=== PATIENT | male | born 1940 | race Caucasian/White ===

== ENCOUNTER 2020-03-22 15:15 | Inpatient (IN) | payer MEDICARE, BC ==
--- NOTE | 2020-03-22 16:02 | ED ---
General Adult HPI - General Chief complaint: Recheck/Abnormal Lab/Rx Stated complaint: kidney failure Time Seen by Provider: 03/22/20 15:24 Source: patient, old records reviewed (Review of reports from [facility], limited report provided) Mode of arrival: EMS Limitations: physical limitation - History of Present Illness Initial comments: Patient is a pleasant 80-year-old male presenting to the emergency Department with complaints of generalized weakness and fatigue. Patient did have a fall this morning. Patient is a poor historian. Did review reports from [facility] that are somewhat limited. Patient reportedly had hemoglobin of 7.5 and was given 1 unit of blood. Patient states he has chronic dark stools secondary to iron intake. Patient is on blood thinners secondary to history of cardiac arrhythmia. Xarelto. Patient states when he fell today he was too weak to get up on his own and needed several people to help him. Patient states he is having some difficulty with urination over the past few days. Patient has previously needed a catheter for this. No confusion or isolated area of weakness. - Related Data Allergies Allergy/AdvReac Type Severity Reaction Status Date / Time metronidazole [From Flagyl] Allergy Unknown Verified 03/22/20 15:31 Review of Systems ROS Statement: Those systems with pertinent positive or pertinent negative responses have been documented in the HPI. ROS Other: All systems not noted in ROS Statement are negative. Constitutional: Denies: fever Eyes: Denies: eye pain ENT: Denies: ear pain Respiratory: Denies: cough, dyspnea Cardiovascular: Denies: chest pain Endocrine: Reports: fatigue Gastrointestinal: Denies: abdominal pain Genitourinary: Denies: dysuria Musculoskeletal: Denies: back pain Skin: Denies: rash Neurological: Reports: as per HPI, weakness. Denies: confusion Past Medical History Past Medical History: GERD/Reflux, Hyperlipidemia, Hypertension History of Any Multi-Drug Resistant Organisms: C-DIFF Date of last positivie culture/infection: 2012 Past Surgical History: Coronary Bypass/CABG, Heart Catheterization With Stent, Orthopedic Surgery Additional Past Surgical History / Comment(s): pacer Past Psychological History: No Psychological Hx Reported Smoking Status: Never smoker Past Alcohol Use History: Occasional Past Drug Use History: None Reported General Exam Limitations: physical limitation General appearance: alert, in no apparent distress Head exam: Present: atraumatic, normocephalic Eye exam: Present: normal appearance, PERRL, EOMI. Absent: nystagmus ENT exam: Present: mucous membranes dry, other (Mild dry blood inside of the) Neck exam: Present: normal inspection. Absent: tenderness Respiratory exam: Present: normal lung sounds bilaterally Cardiovascular Exam: Present: regular rate, normal rhythm GI/Abdominal exam: Present: soft. Absent: tenderness Extremities exam: Present: normal inspection, full ROM Neurological exam: Present: alert, CN II-XII intact. Absent: motor sensory deficit Expanded Neurological exam: Present: protecting the airway Speech: Present: fluid speech Motor strength exam: RUE: 5, LUE: 5, RLE: 5, LLE: 5 Eye Response: (4) open spontaneously Motor Response: (6) obeys commands Verbal Response: (5) oriented Psychiatric exam: Present: normal affect, normal mood Skin exam: Present: normal color Course Vital Signs 03/22/20 15:28 Temperature 97.1 F L Pulse Rate 60 Respiratory 18 Rate Blood Pressure 112/74 O2 Sat by Pulse 95 Oximetry EKG Findings - EKG Comments: EKG Findings:: Paced rhythm with 3-60. QRS 196. QT 514. QTC 514. Superior axis. Wide-complex QRS. Nonspecific ST-T. Medical Decision Making - Medical Decision Making Patient updated. Case was discussed with Dr. Duenas, who will admit covering for Dr. beck. Consult will be placed with nephrology and GI. Bladder scan will be obtained Disposition Clinical Impression: Renal insufficiency, Anemia, General weakness Disposition: ADMITTED IP TO THIS [facility] Condition: Serious Is patient prescribed a controlled substance at d/c from ED?: No Referrals: Mello Vargas MD [Primary Care Provider] - 1-2 days Decision Time: 16:10
[2020-03-22] MEDS ORDERED: NALOXONE 0.4 MG/ML 1 ML VIAL IV PRN (16:15)
[2020-03-22] MEDS: PANTOPRAZOLE 40 MG/10 ML VIAL IV SCH (17:26)
[2020-03-22] MEDS: SODIUM CHLORIDE 0.9% 1,000 ML IV SCH (17:27)
[2020-03-22 17:34] LABS: Basophils % (A) 0 %; Eosinophils % (A) 0 %; HCT 27.3 % (39.0-53.0); HGB 8.7 gm/dL (13.0-17.5); Lymphocytes # (A) 0.3 k/uL (1.0-4.8); Lymphocytes % (A) 3 %; MCV 96.9 fL (80.0-100.0); Mean Platelet Volume 9.3; Monocytes # (A) 0.2 k/uL (0-1.0); Monocytes % (A) 2 %; Neutrophils # (A) 10.5 k/uL (1.3-7.7); Neutrophils % (A) 94 %; Platelet Count 107 k/uL (150-450); RBC 2.82 m/uL (4.30-5.90); RDW 15.7 % (11.5-15.5); WBC 11.1 k/uL (3.8-10.6)
[2020-03-22 17:35] LABS: Appearance,Urine Cloudy (Clear); Bacteria,Urine Rare /hpf; Bilirubin,Urine Negative (Negative); Blood,Urine Moderate (Negative); Budding Yeast,Urine Few /hpf; Color,Urine Yellow; Glucose,Urine (UA) Negative (Negative); Ketones,Urine Negative (Negative); Leukocyte Esterase,Urine Large (Negative); Mucus,Urine Rare /hpf; Nitrite,Urine Negative (Negative); PH, Urine 5.5 (5.0-8.0); Protein,Urine 1+ (Negative); RBC,Urine 17 /hpf (0-5); Specific Gravity,Urine 1.014 (1.001-1.035); Squamous Epithelial Cell,Urine <1 /hpf (0-4); Urobilinogen,Urine <2.0 mg/dL (<2.0); WBC,Urine >182 /hpf (0-5)
--- NOTE | 2020-03-22 18:17 | XR ---
EXAMINATION TYPE: XR chest 2V DATE OF EXAM: 03/22/2020 COMPARISON: 10/15/2019 HISTORY: Short of breath TECHNIQUE: FINDINGS: Heart is enlarged. There is no gross heart failure. There is a left axillary pacemaker. The re are sternal wires. Costophrenic angles are clear. IMPRESSION: Moderate cardiomegaly. No definite acute lung disease. Heart appears increased compared t o old exam.
[2020-03-22] MEDS ORDERED: ALPRAZolam 0.25 MG TAB PO PRN (20:14)
[2020-03-22] MEDS ORDERED: allopurinoL 300 MG TAB PO SCH (21:00)
[2020-03-22] MEDS: METOPROLOL TARTRATE 25 MG TAB PO SCH (21:54)
[2020-03-22] MEDS: PRAVASTATIN SODIUM 20 MG TAB PO SCH (21:54)
--- NOTE | 2020-03-22 22:46 | HP ---
HISTORY AND PHYSICAL DATE OF SERVICE: 03/22/2020. CHIEF COMPLAINT: Shortness of breath and anemia. HISTORY OF PRESENT ILLNESS: This 80-year-old gentleman with a past medical history of multiple medical problems including GERD, hypertension, hyperlipidemia, history of CAD, CABG/stent, being followed by Dr. Vargas in the outpatient setting was previously evaluated at [facility] with apparently GI bleed with colonoscopy by Dr. Lovelace. Apparently, polypectomy was done, but currently the patient presented to [facility] with complaints of weakness and anemia. The patient also had some fatigue. Patient also had shortness of breath. Hemoglobin found to be 7.5. Patient received 1 unit transfusion. The patient was subsequently transferred to [facility] for further evaluation and treatment. There is no history of fever, rigors or chills. No history of headache, loss of consciousness or seizures. The patient had chronic dark stools. PAST MEDICAL HISTORY: History of GERD, hypertension, hyperlipidemia, history of CAD, CABG stent. MEDICATIONS: Medications prior to admission include home medications are: Xarelto 50 mg q.h.s., lactobacillus acidophilus and iron sulfate, Zyloprim, Pravachol, metoprolol, Aldactone. Protonix. Demadex, Flomax and Entresto. ALLERGIES: FLAGYL. FAMILY HISTORY: No history of heart disease or strokes in the family. SOCIAL HISTORY: Occasional alcohol intake. No history of smoking. REVIEW OF SYSTEMS: ENT: Diminished vision. Diminished hearing. CARDIOVASCULAR: As mentioned earlier. RESPIRATORY: As mentioned earlier. GI: As mentioned earlier. no dysuria. NERVOUS SYSTEM: No numbness or weakness. ALLERGY/IMMUNOLOGY: No asthma, hayfever. MUSCULOSKELETAL: As mentioned earlier. HEMATOLOGY/ONCOLOGY: As mentioned earlier. ENDOCRINE: No history of diabetes or hypothyroidism. CONSTITUTIONAL: As mentioned earlier. DERMATOLOGY: Negative. RHEUMATOLOGY negative. PSYCHIATRY as mentioned earlier. PHYSICAL EXAM: Patient is alert, oriented x3. The pulse is 61. Blood pressure 112/69, respiration 20, temperature 97.8, pulse ox 97% on 3 L. HEENT: Conjunctivae normal. Neck: No JVD. CARDIOVASCULAR: S1, S2 muffled. Respirations: Breath sounds diminished in the bases. A few scattered rhonchi and crackles. ABDOMEN: Soft, nontender. No mass palpable. LEGS: No edema. No swelling. Nervous system: Higher functions as mentioned earlier. Moves all 4 limbs. No focal motor or sensory deficits. Lymphatics: No lymph nodes palpable in the neck, axillae or groin. SKIN: No ulcer, no rashes and no bleeding. Joints: No active deforming arthropathy. LABS: At this time shows WBC 11.2, hemoglobin is 8.7. Other labs are pending at this time. ASSESSMENT: 1. Anemia, possibly acute on chronic gastrointestinal blood loss anemia. 2. Acute urinary tract infection present on admission. 3. Shortness of breath, possibly multifactorial, rule out congestive heart failure. 4. Possible renal failure. 5. Increased WBC. 6. Thrombocytopenia. 7. History of gastrointestinal bleed and polypectomy previously. 8. History of gastroesophageal reflux disease/. 9. Hypertension. 10.Hyperlipidemia. 11.History of C. difficile colitis. 12.History of coronary artery disease, coronary artery bypass grafting/stent. 13.History of pacemaker. 14.Obesity with body mass index 36.9. RECOMMENDATIONS AND DISCUSSION: In this 80-year-old gentleman who presented with multiple complex medical issues. We will monitor the patient closely. Continue the current medications. Hemoglobin is improved after transfusion. I would recommend H and H on a serial basis and consult Gastroenterology. Nephrology is consulted for the renal failure. Exact etiology is unknown at this time. The patient seems to have an acute urinary tract infection present on admission, I would recommend a course of antibiotics and obtain the cultures. Cardiology also will be consulted. Overall prognosis guarded because of multiple complex medical issues. We will continue the home medications. Hold anticoagulants and antiplatelet agents at this time. Further recommendations to follow. A copy of this dictation being forwarded to Dr. Vargas who is the primary physician. MMODL / IJN: [id number] /
[2020-03-23] MEDS: SODIUM CHLORIDE 0.9% 1,000 ML IV SCH ×3 (00:03→20:46)
[2020-03-23] MEDS: SACUBITRIL/VALSARTAN 97 MG-103 MG TABLET PO SCH ×4 (00:41→20:53)
[2020-03-23] MEDS: LACTOBACILLUS ACIDOPH & BULGAR 1 EACH PACKET PO SCH ×2 (00:41→20:57)
[2020-03-23 05:22] LABS: African American GFR (CKD) 12.6 (60.0-200.0); Albumin 3.6 g/dL (3.80-4.90); Albumin/Globulin Ratio 1.57 (1.60-3.17); Anion Gap 11.7 mmol/L (4.00-12.00); BUN/Creat Ratio 15.32 Ratio (12.00-20.00); Calcium 9.1 mg/dL (8.7-10.3); Carbon Dioxide 19.3 mmol/L (21.6-31.8); Globulin 2.3 g/dL (1.6-3.3); Non-African American GFR(CKD) 10.9 (60.0-200.0); Potassium 4.5 mmol/L (3.5-5.5); Total Bilirubin 2.2 mg/dL (0.2-1.2); Total Protein 5.9 g/dL (6.2-8.2)
[2020-03-23 06:17] LABS: Basophils % (A) 0 %; Eosinophils % (A) 0 %; HCT 28.4 % (39.0-53.0); HGB 9.3 gm/dL (13.0-17.5); Hypochromasia Slight; Lymphocytes # (A) 0.4 k/uL (1.0-4.8); Lymphocytes % (A) 5 %; MCH 32.5 pg (25.0-35.0); MCHC 32.6 g/dL (31.0-37.0); MCV 99.7 fL (80.0-100.0); Macrocytosis Slight; Mean Platelet Volume 9.1; Monocytes # (A) 0.3 k/uL (0-1.0); Monocytes % (A) 3 %; Neutrophils # (A) 7.5 k/uL (1.3-7.7); Neutrophils % (A) 92 %; Platelet Count 104 k/uL (150-450); RBC 2.85 m/uL (4.30-5.90); RDW 15.3 % (11.5-15.5); WBC 8.2 k/uL (3.8-10.6)
[2020-03-23] MEDS ORDERED: TORSEMIDE 20 MG TAB PO SCH (09:00)
[2020-03-23] MEDS: PANTOPRAZOLE 40 MG/10 ML VIAL IV SCH ×2 (09:49→09:50)
[2020-03-23] MEDS: SPIRONOLACTONE 25 MG TAB PO SCH (09:49)
[2020-03-23] MEDS: TAMSULOSIN 0.4 MG CAP.ER.24H PO SCH (09:49)
[2020-03-23 10:04] LABS: African American GFR (CKD) 15.8 (60.0-200.0); BUN/Creat Ratio 18.97 Ratio (12.00-20.00); Non-African American GFR(CKD) 13.7 (60.0-200.0); Potassium 4.5 mmol/L (3.5-5.5)
--- NOTE | 2020-03-23 11:53 | P.NPCON ---
History of Present Illness - Reason for Consult acute renal failure - History of Present Illness Reason for consultation: Acute kidney injury History of present illness: Patient is a 80-year-old male seen in renal consultation for acute kidney injury. Patient's creatinine on admission was 4.7 and is down to 3.9 today. Patient initially went to [facility] due to generalized weakness. His hemoglobin was noted to be low and he did receive a unit of blood over there. He was subsequently transferred here after Argueta catheter could not be inserted at [facility]. He now has a Argueta catheter and is nonoliguric. He denies any active bleeding but states that his stool is dark as he takes oral iron. Patient states he hasn't seen a wealth management advisor in several years but has been told that he has weak kidneys in the past. No history of diabetes. He does take torsemide as well as spironolactone and entresto at home. He is currently receiving normal saline at 75 mL an hour. Hemoglobin this morning was 9.3. He denies regular use of nonsteroidals. No chest pain or shortness of breath. No vomiting or diarrhea. No fever or chills. No evidence of fluid overload noted on chest x-ray. Echocardiogram is pending. Vital signs are stable. General: The patient appeared well nourished and normally developed. HEENT: Head exam is unremarkable. Neck is without jugular venous distension. LUNGS: Breath sounds decreased. HEART: Rate and Rhythm are regular. ABDOMEN: Soft, nontender. EXTREMITITES: No edema. Past Medical History Past Medical History: Heart Failure, COPD, Hypertension, Renal Disease History of Any Multi-Drug Resistant Organisms: C-DIFF Date of last positivie culture/infection: 2012 MDRO Source:: stool Past Surgical History: Coronary Bypass/CABG, Heart Catheterization With Stent, Orthopedic Surgery, Pacemaker Additional Past Surgical History / Comment(s): pacer Past Anesthesia/Blood Transfusion Reactions: No Reported Reaction Date of Last Stent Placement:: 2012 Type of Cardiac Device: Permanent Pacemaker Device Placement Date:: 2015 Past Psychological History: No Psychological Hx Reported Smoking Status: Never smoker Past Alcohol Use History: Occasional Past Drug Use History: None Reported - Past Family History Daughter(s) Family Medical History: Cancer Additional Family Medical History / Comment(s): Colon cancer Medications and Allergies Home Medications Medication Instructions Recorded Confirmed Type Allopurinol [Zyloprim] 300 mg PO HS 03/22/20 03/22/20 History Ferrous Sulfate [Feosol] 325 mg PO MOTUWETHFR 03/22/20 03/22/20 History Lactobacillus Acidophilus 1 tab PO HS 03/22/20 03/22/20 History [Acidophilus] Metoprolol Tartrate 25 mg PO HS 03/22/20 03/22/20 History Pantoprazole Sodium 40 mg PO DAILY 03/22/20 03/22/20 History Pravastatin Sodium [Pravachol] 10 mg PO HS 03/22/20 03/22/20 History Rivaroxaban [Xarelto] 15 mg PO HS 03/22/20 03/22/20 History Sacubitril/Valsartan [Entresto 97 0.5 tab PO BID 03/22/20 03/22/20 History mg-103 mg Tablet] Spironolactone 12.5 mg PO DAILY 03/22/20 03/22/20 History Tamsulosin [Flomax] 0.4 mg PO DAILY 03/22/20 03/22/20 History Torsemide [Demadex] 20 mg PO DAILY 03/22/20 03/22/20 History Allergies Allergy/AdvReac Type Severity Reaction Status Date / Time metronidazole [From Flagyl] Allergy Unknown Verified 03/22/20 17:25 Physical Exam Vitals: Vital Signs Temp Pulse Pulse Resp BP BP Pulse Ox 03/23/20 09:50 60 16 03/23/20 08:00 94.5 F L 60 16 95/55 98 03/23/20 02:00 98.2 F 60 18 104/60 97 03/22/20 22:00 60 16 110/71 96 03/22/20 19:00 60 19 97 03/22/20 18:00 61 20 112/69 97 03/22/20 17:18 97.8 F 60 20 112/69 95 03/22/20 17:04 60 18 112/69 95 03/22/20 16:52 60 18 104/72 97 03/22/20 15:28 97.1 F L 60 18 112/74 95 Intake and Output 03/22/20 03/23/20 03/23/20 22:59 06:59 14:59 Output Total 825 700 Balance -825 -700 Output: Urine 825 700 Uretheral (Argueta) 325 Other: Voiding Method Indwelling Catheter Weight 123.377 kg Results - Lab Results Most recent lab results Calcium 9.0 mg/dL (8.7-10.3) 03/23/20 05:40 03/23/20 05:40 03/23/20 05:40 Assessment and Plan Plan: Assessment: 1. Acute kidney injury mostly prerenal secondary to hypovolemia from diuresis and anemia. Creatinine was 4.7 on admission is 3.9 today. Unknown baseline renal function. 2. Rule out chronic kidney disease. 3. Acute blood loss anemia. Status post blood transfusion. GI consulted. Hemoglobin 9.3 today. 4. Metabolic acidosis secondary to acute kidney injury. Better. 5. History of CHF. Unknown ejection fraction. Echocardiogram pending. Plan: Hold torsemide. Hold spironolactone and entresto for systolic blood pressure less than 110. Decrease rate of normal saline at 50 mL an hour. Check iron studies. Follow-up cultures. Follow-up echocardiogram. Check renal ultrasound. Repeat electrolytes in the morning. Thank you for the consultation. I will continue to follow the patient with you during his hospital stay.
--- NOTE | 2020-03-23 12:59 | P.CRDCN ---
History of Present Illness Consult date: 03/23/20 History of present illness: CHIEF COMPLAINT: Cardiac evaluation HISTORY OF PRESENT ILLNESS: This is a 80-year-old male with a past medical history significant for coronary artery disease with previous CABG, AICD, atrial fibrillation, hypertension, and hyperlipidemia. Patient follows with a anesthesia associate in [place]. We have been asked to see the patient in consultation for cardiac evaluation. Patient was transferred from [facility] secondary to weakness, fatigue, anemia, fall, and renal failure. Patient's hemoglobin was found to be 7.5 and he received 1 unit RBC transfusion. Patient examined this morning in the emergency room. Patient states he recently underwent EGD and colonoscopy in October and had a polyp removed. He reports chronic black stools secondary to iron therapy. He reports shortness of breath which has been chronic over the past several months. He denies chest pain or pressure. DIAGNOSTICS: EKG reveals ventricular paced rhythm Chest xray moderate cardiomegaly. No acute process. Laboratory data: WBC 8.2. Hemoglobin 9.3. Platelet count 104. Sodium 135. P otassium 4.5. BUN 74. Creatinine 3.9. Current home cardiac medications include Xarelto 15 mg today, pravastatin 10 mg daily, metoprolol 25 mg daily, spironolactone 12.5 mg daily, Demadex 20 mg daily , and Entresto 97-103mg BID. REVIEW OF SYSTEMS: At the time of my exam: CONSTITUTIONAL: Denies fever or chills. HEENT: Denies blurred vision, vision changes, or eye pain. Denies hemoptysis CARDIOVASCULAR: Denies chest pain, orthopnea, PND or palpitations RESPIRATORY: Reports mild shortness of breath. GASTROINTESTINAL: Denies abdominal pain. Denies nausea or vomiting. HEMATOLOGIC: Denies bleeding disorders. GENITOURINARY: Denies any blood in urine. SKIN: Denies pruitis. Denies rash. PHYSICAL EXAM: VITAL SIGNS: Reviewed. GENERAL: Well-developed in no acute distress. HEENT: Head is normocephalic. Pupils are equal, round. Sclerae anicteric. Mucous membranes of the mouth are moist. Neck supple. No JVD or thyromegaly LUNGS: Respirations even and unlabored. Lungs diminished. HEART: Regular rate and rhythm. S1 and S2 heard. ABDOMEN: Soft. Nondistended. Nontender. EXTREMITIES: Normal range of motion. No clubbing or cyanosis. Peripheral pulse s intact. No lower extremity edema NEUROLOGIC: Awake and alert. Oriented x 3. ASSESSMENT: Weakness, fatigue, and fall from standing Shortness of breath Chronic persistent atrial fibrillation, on anticoagulation with Xarelto Anemia, status post EGD and colonoscopy in October 2019 Acute renal failure Coronary artery disease with previous stent placement and CABG History of AICD insertion Hypertension Hyperlipidemia PLAN: Nephrology following for acute renal failure GI consulted for anemia. Await recommendations Monitor hemoglobin Continue to hold Xarelto Resume additional home cardiac medications Obtain 2D echo to assess cardiac structure and function Further recommendations pending patient course Nurse practitioner note has been reviewed by physician. Signing provider agrees with the documented findings, assessment, and plan of care. Past Medical History Past Medical History: Heart Failure, COPD, Hypertension, Renal Disease History of Any Multi-Drug Resistant Organisms: C-DIFF Date of last positivie culture/infection: 2012 MDRO Source:: stool Past Surgical History: Coronary Bypass/CABG, Heart Catheterization With Stent, Orthopedic Surgery, Pacemaker Additional Past Surgical History / Comment(s): pacer Past Anesthesia/Blood Transfusion Reactions: No Reported Reaction Date of Last Stent Placement:: 2012 Type of Cardiac Device: Permanent Pacemaker Device Placement Date:: 2015 Past Psychological History: No Psychological Hx Reported Smoking Status: Never smoker Past Alcohol Use History: Occasional Past Drug Use History: None Reported - Past Family History Daughter(s) Family Medical History: Cancer Additional Family Medical History / Comment(s): Colon cancer Medications and Allergies Home Medications Medication Instructions Recorded Confirmed Type Allopurinol [Zyloprim] 300 mg PO HS 03/22/20 03/22/20 History Ferrous Sulfate [Feosol] 325 mg PO MOTUWETHFR 03/22/20 03/22/20 History Lactobacillus Acidophilus 1 tab PO HS 03/22/20 03/22/20 History [Acidophilus] Metoprolol Tartrate 25 mg PO HS 03/22/20 03/22/20 History Pantoprazole Sodium 40 mg PO DAILY 03/22/20 03/22/20 History Pravastatin Sodium [Pravachol] 10 mg PO HS 03/22/20 03/22/20 History Rivaroxaban [Xarelto] 15 mg PO HS 03/22/20 03/22/20 History Sacubitril/Valsartan [Entresto 97 0.5 tab PO BID 03/22/20 03/22/20 History mg-103 mg Tablet] Spironolactone 12.5 mg PO DAILY 03/22/20 03/22/20 History Tamsulosin [Flomax] 0.4 mg PO DAILY 03/22/20 03/22/20 History Torsemide [Demadex] 20 mg PO DAILY 03/22/20 03/22/20 History Allergies Allergy/AdvReac Type Severity Reaction Status Date / Time metronidazole [From Flagyl] Allergy Unknown Verified 03/22/20 17:25 Physical Exam Vitals: Vital Signs Temp Pulse Pulse Resp BP BP Pulse Ox 03/23/20 09:50 60 16 03/23/20 08:00 94.5 F L 60 16 95/55 98 03/23/20 02:00 98.2 F 60 18 104/60 97 03/22/20 22:00 60 16 110/71 96 03/22/20 19:00 60 19 97 03/22/20 18:00 61 20 112/69 97 03/22/20 17:18 97.8 F 60 20 112/69 95 03/22/20 17:04 60 18 112/69 95 03/22/20 16:52 60 18 104/72 97 03/22/20 15:28 97.1 F L 60 18 112/74 95 Intake and Output 03/22/20 03/23/20 03/23/20 22:59 06:59 14:59 Output Total 825 700 Balance -825 -700 Output: Urine 825 700 Uretheral (Argueta) 325 Other: Voiding Method Indwelling Catheter Weight 123.377 kg Results 03/23/20 05:40 03/23/20 05:40 Cardiac Enzymes 03/22/20 Range/Units 21:01 AST 35 (14-35) U/L CBC 03/22/20 03/23/20 Range/Units 17:00 05:40 WBC 11.1 H 8.2 (3.8-10.6) k/uL RBC 2.82 L 2.85 L (4.30-5.90) m/uL Hgb 8.7 L 9.3 L (13.0-17.5) gm/dL Hct 27.3 L 28.4 L (39.0-53.0) % Plt Count 107 L 104 L (150-450) k/uL Comprehensive Metabolic Panel 03/22/20 03/23/20 Range/Units 21:01 05:40 Sodium 132 L 135 (135-145) mmol/L Potassium 4.5 4.5 (3.5-5.5) mmol/L Chloride 101 103 (96-109) mmol/L Carbon Dioxide 19.3 L 22.0 (21.6-31.8) mmol/L BUN 72.0 H 74.0 H (9.0-27.0) mg/dL Creatinine 4.7 H 3.9 H (0.6-1.5) mg/dL Glucose 222 H 178 H (70-110) mg/dL Calcium 9.1 9.0 (8.7-10.3) mg/dL AST 35 (14-35) U/L ALT 23 (10-49) U/L Alkaline Phosphatase 194 H (41-126) U/L Total Protein 5.9 L (6.2-8.2) g/dL Albumin 3.60 L (3.80-4.90) g/dL Current Medications Generic Name Dose Route Start Last Admin Trade Name Freq PRN Reason Stop Dose Admin Allopurinol 300 mg 03/22/20 21:00 03/23/20 00:41 Allopurinol 300 Mg Tab PO Not Given HS CADENCE Alprazolam 0.25 mg 03/22/20 20:14 Alprazolam 0.25 Mg Tab PO TID PRN Anxiety Ceftriaxone Sodium 1 gm/ 50 mls @ 100 mls/hr 03/22/20 21:00 03/23/20 09:50 Sodium Chloride IVPB 100 mls/hr Q24HR CADENCE Administration Sodium Chloride 1,000 mls @ 50 mls/hr 03/23/20 11:45 Saline 0.9% IV .Q20H CADENCE Lactobacillus Acidoph/Bulgaricus 1 each 03/22/20 21:00 03/23/20 00:41 Lactobacillus Acidoph & Bulgar 1 Each Packet PO Not Given HS CADENCE Metoprolol Tartrate 25 mg 03/22/20 21:00 03/22/20 21:54 Metoprolol Tartrate 25 Mg Tab PO 25 mg HS CADENCE Administration Naloxone HCl 0.2 mg 03/22/20 16:15 Naloxone 0.4 Mg/Ml 1 Ml Vial IV Q2M PRN Opioid Reversal Pantoprazole Sodium 40 mg 03/22/20 16:30 03/23/20 09:50 Pantoprazole 40 Mg/10 Ml Vial IV 40 mg DAILY CADENCE Administration Pravastatin Sodium 10 mg 03/22/20 21:00 03/22/20 21:54 Pravastatin Sodium 20 Mg Tab PO 10 mg HS CADENCE Administration Sacubitril/Valsartan 0.5 each 03/22/20 21:00 03/23/20 09:57 Sacubitril/Valsartan 97 Mg-103 Mg Tablet PO Not Given BID CADENCE Spironolactone 12.5 mg 03/23/20 09:00 03/23/20 09:49 Spironolactone 25 Mg Tab PO 12.5 mg DAILY CADENCE Administration Tamsulosin HCl 0.4 mg 03/23/20 09:00 03/23/20 09:49 Tamsulosin 0.4 Mg Cap.Er.24h PO 0.4 mg DAILY CADENCE Administration Intake and Output 03/22/20 03/23/20 03/23/20 22:59 06:59 14:59 Output Total 825 700 Balance -825 -700 Output: Urine 825 700 Uretheral (Argueta) 325 Other: Voiding Method Indwelling Catheter Weight 123.377 kg 03/23/20 05:40 03/23/20 05:40
--- NOTE | 2020-03-23 13:17 | US ---
EXAMINATION TYPE: US kidneys/renal and bladder DATE OF EXAM: 03/23/2020 COMPARISON: NONE CLINICAL HISTORY: alfredo. ALFREDO EXAM MEASUREMENTS: Right Kidney: 12.0 x 5.6 x 6.3 cm Left Kidney: 10.8 x 5.4 x 5.1 cm *Technical limitations due patient's body habitus Right Kidney: echogenic, thin renal cortex, cystic areas noted with largest = 2.4 x 2.2 x 2.0cm upper pole Left Kidney: echogenic, thin renal cortex Bladder: Argueta Catheter Bilateral Jets seen: no IMPRESSION: 1. Right renal cyst.
[2020-03-23 14:42] LABS: % Iron Saturation 10.38 (15.00-50.00); Ferritin 350.4 ng/mL (22.0-322.0)
--- NOTE | 2020-03-23 15:50 | PN ---
PROGRESS NOTE DATE OF SERVICE: 03/23/2020 This 80-year-old gentleman who was admitted with anemia also had significant renal failure. The patient also had a UTI, present on admission. The patient had a creatinine of 4.7 on admission, currently 3.9. Cultures are pending at this time. The white count is 8.2. Patient has been started on broad-spectrum IV antibiotics. Sensorium is slightly improved at this time. Past medical history reviewed. REVIEW OF SYSTEMS: CARDIOVASCULAR SYSTEM: No angina, palpitations. RESPIRATORY SYSTEM: As mentioned earlier. GI: As mentioned earlier. : No dysuria or retention. NERVOUS SYSTEM: No numbness, weakness. CURRENT MEDICATIONS: Reviewed. They include zyloprim, Xanax, Rocephin, lactobacillus, Narcan, Protonix, Pravachol, Sacubitril/valsartan, aldactone. PHYSICAL EXAMINATION: Patient is alert, oriented x3. Pulse is 60, blood pressure 95/55, respiration 16, temperature 94.5, pulse ox 98% on 3 L. HEENT: Conjunctivae normal. NECK: No jugular venous distention. CARDIOVASCULAR SYSTEM: S1, S2 muffled. RESPIRATORY SYSTEM: Breath sounds diminished at the bases. Scattered rhonchi and crackles. ABDOMEN: Soft, obese, non-tender. LEGS: No edema. No swelling. NERVOUS SYSTEM: Diffusely weak. LABS: WBC 8.2, hemoglobin 9.3, platelets 104. ASSESSMENT: 1. Anemia, acute on chronic; gastrointestinal blood loss anemia. 2. Acute renal failure with acute prerenal renal failure, acute tubular necrosis. 3. Acute urinary tract infection, present on admission. 4. Shortness of breath, multifactorial. Rule out congestive heart failure. 5. Increased white count. 6. Thrombocytopenia. 7. History of gastrointestinal bleed and polypectomy previously. 8. History of gastroesophageal reflux disease. 9. Hyp tension. 10.Hyperlipidemia. 11.History of Clostridium difficile colitis. 12.History of coronary artery disease, coronary artery bypass grafting, stent. 13.History of pacemaker. 14.Obesity with body mass index of 36.9. RECOMMENDATIONS AND DISCUSSION: I recommend to continue current medications, continue with the monitoring, symptomatic treatment. Will continue with cautious hydration. I would also recommend a cardiology consultation for CHF. Other than that, empiric antibiotics. Home medication has been resumed. Will supplement vitamins. Guarded prognosis. Further recommendations to follow. The patient was also on rivaroxaban; it is on hold at this time. Hemoglobin is 9.3 at this time. Will check stool OB also. MMODL / IJN: [id number] /
--- NOTE | 2020-03-23 17:29 | ECHOF ---
Referral Reason:LV function MEASUREMENTS -------- HEIGHT: 182.9 cm WEIGHT: 123.4 kg BP: RVIDd: 3.9 cm (< 3.3) IVSd: 1.7 cm (0.6 - 1.1) LVIDd: 6.8 cm (3.9 - 5.3) LVPWd: 1.7 cm (0.6 - 1.1) IVSs: 2.3 cm LVIDs: 5.6 cm LVPWs: 1.2 cm LA Diam: 4.6 cm (2.7 - 3.8) LAESV Index (A-L): 63.21 ml/m Ao Diam: 3.5 cm (2.0 - 3.7) AV Cusp: 2.0 cm (1.5 - 2.6) LA Diam: 4.6 cm (2.7 - 3.8) MV EXCURSION: 24.599 mm (> 18.000) MV EF SLOPE: 116 mm/s (70 - 150) EPSS: 1.1 cm MV E Ben: 0.85 m/s MV DecT: 152 ms MV A Ben: 0.23 m/s MV E/A Ratio: 3.67 RAP: 5.00 mmHg RVSP: 40.01 mmHg FINDINGS -------- Paced rhythm. This was a techncally difficult study with suboptimal views, , Lumason utilized for enhancement of im ages. The left ventricular size is normal. There is moderate global hypokinesis of LV . Overall left ve ntricular systolic function is severely impaired with, an EF between 20 - 25 %. The right ventricle is normal in size. LA is severely dilated >40 ml/m2 The right atrial size is normal. There is mild aortic valve sclerosis. Trace to mild aortic regurgitation. Mild mitral regurgitation is present. Mild tricuspid regurgitation present. There is mild pulmonary hypertension. The right ventricular systolic pressure, as measured by Doppler, is 40.01mmHg. There is no pulmonic regurgitation present. The aortic root size is normal. There is no pericardial effusion. CONCLUSIONS -------- 1. This was a techncally difficult study with suboptimal views, , Lumason utilized for enhancement of images. 2. The left ventricular size is normal. 3. There is moderate global hypokinesis of LV . 4. Overall left ventricular systolic function is severely impaired with, an EF between 20 - 25 %. 5. The right ventricle is normal in size. 6. LA is severely dilated >40 ml/m2 7. The right atrial size is normal. 8. There is mild aortic valve sclerosis. 9. Trace to mild aortic regurgitation. 10. Mild mitral regurgitation is present. 11. Mild tricuspid regurgitation present. 12. There is mild pulmonary hypertension. 13. The right ventricular systolic pressure, as measured by Doppler, is 40.01mmHg. 14. There is no pulmonic regurgitation present. 15. The aortic root size is normal. 16. There is no pericardial effusion. CAR DETAILER: Yisel Granado RDCS
[2020-03-23] MEDS ORDERED: MAGNESIUM CITRATE 296 ML BOTTLE PO ONE (18:00)
--- NOTE | 2020-03-23 18:37 | CONS ---
CONSULTATION DATE OF DICTATION: 03/23/2020 REASON FOR CONSULTATION: Severe symptomatic anemia. HISTORY OF PRESENT ILLNESS: The patient is an 80-year-old pleasant white male with past medical history of GERD, hypertension, hyperlipidemia, history of CABG in the past, atrial fibrillation, on Xarelto. He was admitted to the hospital because of severe symptomatic anemia and a hemoglobin of 7, requiring a unit of PRBCs transfusion. He presented with fatigue, weakness and intermittent dark-colored stools. The patient has been on iron supplements for the last one year because of persistent anemia. He was admitted to [facility] in October of 2019 with hemoglobin of 4, at which time he received 5 units of PRBC transfusion. He did have an EGD and colonoscopy done by [place] that showed a 2 cm pedunculated polyp, the biopsy of which revealed a tubular adenoma. Upper endoscopy was unremarkable. He does have longstanding history of gastroesophageal reflux disease and has been on Protonix 40 mg daily. PAST MEDICAL HISTORY: His past medical history is significant for hypertension, hyperlipidemia, atrial fibrillation, on Xarelto, gastroesophageal reflux disease and history of coronary artery disease. MEDICATIONS: Medications at home include Xarelto, which is currently on hold, iron sulfate, Zyloprim, Pravachol, metoprolol, Aldactone, Protonix, Demadex, Flomax and Entresto. ALLERGIES: FLAGYL. SOCIAL HISTORY: No smoking. No alcohol use. FAMILY HISTORY: Unremarkable. REVIEW OF SYSTEMS: CARDIOPULMONARY: No chest pain, but does complain of some shortness of breath. GENITOURINARY: No dysuria or hematuria. MUSCULOSKELETAL: Unremarkable. SKIN: Unremarkable. GI: Intermittent dark-colored stool. NEUROLOGY: Unremarkable. PSYCHIATRY: Unremarkable. ENT/VISION: Unremarkable. CONSTITUTIONAL: No recent weight loss. No fever, chills, night sweats. ENDOCRINE: Unremarkable. HEMATOLOGY: Severe anemia. PHYSICAL EXAMINATION: He appears comfortable. No apparent distress. VITAL SIGNS: Stable. Blood pressure 133/86, pulse rate 82 per minute and afebrile. HEENT examination unremarkable. Conjunctivae pink. Sclerae anicteric. Oral cavity no lesions. NECK: No JVD or lymph node enlargement. CHEST: Clear to auscultation. HEART: Regular rate and rhythm. ABDOMEN: Soft. Bowel sounds are positive. No organomegaly. EXTREMITIES: No pedal edema. NEUROLOGIC: Alert and oriented x3. No focal deficits. LABS: Labs from yesterday showed WBC 11.1, hemoglobin was 7. After one unit of PRBC transfusion, hemoglobin is up to 8.7. Platelets 107. BUN is 72, creatinine 4.7. AST and ALT normal. Alkaline phosphatase is 194. IMPRESSION: 1. Severe symptomatic anemia with a hemoglobin of 7 g/dL but clinically no evidence of active bleeding. The patient has been having intermittent dark-colored stools, but he believes this is most likely related to iron supplements. He did have an EGD and colonoscopy in October of 2019 by me at [facility] that showed normal upper endoscopy, but colonoscopy revealed a 2 cm tubular adenoma. The patient has been on iron supplements regularly. He is also on Xarelto for atrial fibrillation, which is currently on hold. 2. History of gastroesophageal reflux disease, on Protonix 40 mg daily. 3. History of hypertension and hyperlipidemia. 4. Urinary tract infection, on broad-spectrum antibiotics. 5. Mild thrombocytopenia of unclear etiology. 6. History of coronary artery disease, status post coronary artery bypass grafting several years ago. RECOMMENDATIONS: 1. Continue to hold Xarelto. 2. Will proceed with a small bowel capsule endoscopy to evaluate small bowel source of occult GI blood loss. 3. Monitor CBC daily. 4. Continue Protonix 40 mg daily. 5. Obtain iron studies. 6. Will follow with you closely. Thank you for this consultation. MMODL / IJN: [id number] /
[2020-03-23] MEDS: PRAVASTATIN SODIUM 20 MG TAB PO SCH (20:54)
[2020-03-23] MEDS: allopurinoL 100 MG TAB PO SCH (20:55)
[2020-03-23] MEDS: METOPROLOL TARTRATE 25 MG TAB PO SCH (20:55)
[2020-03-24 07:47] LABS: Reticulocyte % 2.6 % (0.5-2.0)
[2020-03-24] MEDS ORDERED: SIMETHICONE 40 MG/0.6 ML DROPS 2,000 MG/30 ML BOTTLE PO ONE (08:20)
[2020-03-24 10:42] LABS: Folate, Serum 8.5 ng/mL
[2020-03-24 11:03] LABS: Hypochromasia Slight; MCH 33.2 pg (25.0-35.0); MCHC 33.5 g/dL (31.0-37.0); MCV 99.1 fL (80.0-100.0); Macrocytosis Slight; Mean Platelet Volume 9.2; Platelet Count 115 k/uL (150-450); RBC 2.72 m/uL (4.30-5.90); RDW 15.2 % (11.5-15.5); WBC 10.8 k/uL (3.8-10.6)
[2020-03-24 11:12] LABS: African American GFR (CKD) 16.9 (60.0-200.0); Anion Gap 7.9 mmol/L (4.00-12.00); BUN/Creat Ratio 21.08 Ratio (12.00-20.00); Calcium 8.5 mg/dL (8.7-10.3); Carbon Dioxide 23.1 mmol/L (21.6-31.8); Magnesium 2.2 mg/dL (1.5-2.4); Non-African American GFR(CKD) 14.6 (60.0-200.0); Potassium 4.3 mmol/L (3.5-5.5)
[2020-03-24] MEDS: SACUBITRIL/VALSARTAN 97 MG-103 MG TABLET PO SCH ×2 (13:23→20:55)
[2020-03-24] MEDS: SPIRONOLACTONE 25 MG TAB PO SCH (13:24)
[2020-03-24] MEDS: TAMSULOSIN 0.4 MG CAP.ER.24H PO SCH (13:24)
[2020-03-24] MEDS: MULTIVITAMINS, THERA 1 EACH TAB PO SCH (13:25)
[2020-03-24] MEDS: FOLIC ACID 1 MG TAB PO SCH (13:25)
[2020-03-24] MEDS: THIAMINE 100 MG TAB PO SCH (13:25)
--- NOTE | 2020-03-24 13:29 | P.PN ---
Subjective Patient is seen in follow-up for acute kidney injury on chronic kidney disease. Creatinine down to 3.7 today. Diuretics are held. He is maintained on IV fluids. Has a Argueta catheter. Nonoliguric. No chest pain or shortness of breath. Vital signs are stable. General: The patient appeared well nourished and normally developed. HEENT: Head exam is unremarkable. Neck is without jugular venous distension. LUNGS: Breath sounds decreased. HEART: Rate and Rhythm are regular. ABDOMEN: Soft, nontender. EXTREMITITES: No edema. Objective - Vital Signs Vital signs: Vital Signs Temp 94.5 F L 03/23/20 14:48 Pulse 60 03/24/20 08:13 Resp 18 03/24/20 08:13 BP 112/69 03/24/20 08:13 Pulse Ox 97 03/24/20 08:13 Intake & Output 03/23/20 03/24/20 03/24/20 18:59 06:59 18:59 Other: Voiding Method Indwelling Catheter Indwelling Catheter Indwelling Catheter # Voids 2 375 # Bowel Movements 2 - Labs CBC & Chem 7: 03/24/20 06:11 03/24/20 06:11 Labs: Abnormal Lab Results - Last 24 Hours (Table) 03/23/20 03/24/20 03/24/20 Range/Units 05:04 06:11 06:11 WBC (3.8-10.6) k/uL RBC (4.30-5.90) m/uL Hgb (13.0-17.5) gm/dL Hct (39.0-53.0) % Plt Count (150-450) k/uL Retic Count 2.6 H (0.5-2.0) % BUN 78.0 H (9.0-27.0) mg/dL Creatinine 3.7 H (0.6-1.5) mg/dL Est GFR (CKD-EPI)AfAm 16.9 L (60.0-200.0) Est GFR (CKD-EPI)NonAf 14.6 L (60.0-200.0) BUN/Creatinine Ratio 21.08 H (12.00-20.00) Ratio Glucose 155 H (70-110) mg/dL Calcium 8.5 L (8.7-10.3) mg/dL Iron 22 L (65-175) ug/dL TIBC 212 L (228-460) ug/dL % Saturation 10.38 L (15.00-50.00) Ferritin 350.4 H (22.0-322.0) ng/mL Vitamin B12 1227.0 H (200.0-944.0) pg/mL 03/24/20 Range/Units 06:11 WBC 10.8 H (3.8-10.6) k/uL RBC 2.72 L (4.30-5.90) m/uL Hgb 9.0 L (13.0-17.5) gm/dL Hct 27.0 L (39.0-53.0) % Plt Count 115 L (150-450) k/uL Retic Count (0.5-2.0) % BUN (9.0-27.0) mg/dL Creatinine (0.6-1.5) mg/dL Est GFR (CKD-EPI)AfAm (60.0-200.0) Est GFR (CKD-EPI)NonAf (60.0-200.0) BUN/Creatinine Ratio (12.00-20.00) Ratio Glucose (70-110) mg/dL Calcium (8.7-10.3) mg/dL Iron (65-175) ug/dL TIBC (228-460) ug/dL % Saturation (15.00-50.00) Ferritin (22.0-322.0) ng/mL Vitamin B12 (200.0-944.0) pg/mL Microbiology - Last 24 Hours (Table) 03/22/20 21:01 Blood Culture - Preliminary Blood No Growth after 24 hours 03/22/20 17:00 Urine Culture - Preliminary Urine,Voided Gram Neg Bacilli Assessment and Plan Plan: Assessment: 1. Acute kidney injury mostly prerenal secondary to hypovolemia from diuresis and anemia. Creatinine was 4.7 on admission is 3.7today. Unknown baseline renal function. No hydronephrosis noted on kidney ultrasound. 2. Rule out chronic kidney disease. 3. Acute blood loss anemia. Status post blood transfusion. GI following. Small bowel capsule endoscopy pending. Hemoglobin 9.0 today. Iron deficiency noted. 4. Metabolic acidosis secondary to acute kidney injury. Better. 5. Chronic systolic CHF with ejection fraction of 20-25%. 6. UTI with culture positive for gram-negative bacilli maintained on antibiotics. 7. Urinary retention. Currently has a Argueta catheter. Plan: Hold torsemide. Hold spironolactone and entresto for systolic blood pressure less than 90 per cardiology. Maintain normal saline at 50 mL an hour. IV iron 3 doses. First dose today. Repeat electrolytes in the morning.
--- NOTE | 2020-03-24 13:35 | P.PN ---
Subjective Progress Note Date: 03/24/20 CHIEF COMPLAINT: Cardiac evaluation HISTORY OF PRESENT ILLNESS: 03/23/2020 This is a 80-year-old male with a past medical history significant for coronary artery disease with previous CABG, AICD, atrial fibrillation, hypertension, and hyperlipidemia. Patient follows with a commercial lending relationship manager in [place]. We have been asked to see the patient in consultation for cardiac evaluation. Patient was transferred from [facility] secondary to weakness, fatigue, anemia, fall, and renal failure. Patient's hemoglobin was found to be 7.5 and he received 1 unit RBC transfusion. Patient examined this morning in the emergency room. Patient states he recently underwent EGD and colonoscopy in October and had a polyp removed. He reports chronic black stools secondary to iron therapy. He reports shortness of breath which has been chronic over the past several months. He denies chest pain or pressure. EKG reveals ventricular paced rhythm. Chest xray moderate cardiomegaly. No acute process. Laboratory data: WBC 8.2. Hemoglobin 9.3. Platelet count 104. Sodium 135. Potassium 4.5. BUN 74. Creatinine 3.9. Current home cardiac medications include Xarelto 15 mg today, pravastatin 10 mg daily, metoprolol 25 mg daily, spironolactone 12.5 mg daily, Demadex 20 mg daily, and Entresto 97-103mg BID. 03/24/2020 Patient examined this morning at the bedside. Patient is scheduled for a small bowel capsule study today per GI service. Xarelto remains on hold. Echocardiogram completed revealed ejection fraction 20-25%, trace to mild aortic regurgitation, mild tricuspid regurgitation, mild mitral regurgitation, and mild pulmonary hypertension. Vital signs stable. Blood pressure 112/69. Heart rate in the 60s. He is on 2 L nasal cannula with oxygen saturations greater than 92%. PHYSICAL EXAM: VITAL SIGNS: Reviewed. GENERAL: Well-developed in no acute distress. HEENT: Head is normocephalic. Pupils are equal, round. Sclerae anicteric. Mucous membranes of the mouth are moist. Neck supple. No JVD or thyromegaly LUNGS: Respirations even and unlabored. Lungs diminished. HEART: Regular rate and rhythm. S1 and S2 heard. ABDOMEN: Soft. Nondistended. Nontender. EXTREMITIES: Normal range of motion. No clubbing or cyanosis. Peripheral pulses intact. No lower extremity edema NEUROLOGIC: Awake and alert. Oriented x 3. ASSESSMENT: Weakness, fatigue, and fall from standing Shortness of breath Chronic persistent atrial fibrillation, on anticoagulation with Xarelto Anemia, status post EGD and colonoscopy in October 2019 Acute renal failure Coronary artery disease with previous stent placement and CABG Ischemic cardiomyopathy, ejection fraction 20-25% History of AICD insertion Hypertension Hyperlipidemia PLAN: Nephrology following for acute renal failure Patient to undergo small bowel capsule study today per GI service Monitor hemoglobin Continue to hold Xarelto Continue current additional cardiac medications Further recommendations pending patient course Nurse practitioner note has been reviewed by physician. Signing provider agrees with the documented findings, assessment, and plan of care. Objective - Vital Signs Vital signs: Vital Signs Temp 94.5 F L 03/23/20 14:48 Pulse 60 03/24/20 08:13 Resp 18 03/24/20 08:13 BP 112/69 03/24/20 08:13 Pulse Ox 97 03/24/20 08:13 Intake & Output 03/23/20 03/24/20 03/24/20 18:59 06:59 18:59 Other: Voiding Method Indwelling Catheter Indwelling Catheter Indwelling Catheter # Voids 2 375 # Bowel Movements 2 - Labs CBC & Chem 7: 03/24/20 06:11 03/24/20 06:11 Labs: Abnormal Lab Results - Last 24 Hours (Table) 03/23/20 03/24/20 03/24/20 Range/Units 05:04 06:11 06:11 WBC 10.8 H (3.8-10.6) k/uL RBC 2.72 L (4.30-5.90) m/uL Hgb 9.0 L (13.0-17.5) gm/dL Hct 27.0 L (39.0-53.0) % Plt Count 115 L (150-450) k/uL Retic Count 2.6 H (0.5-2.0) % Iron 22 L (65-175) ug/dL TIBC 212 L (228-460) ug/dL % Saturation 10.38 L (15.00-50.00) Ferritin 350.4 H (22.0-322.0) ng/mL Microbiology - Last 24 Hours (Table) 03/22/20 21:01 Blood Culture - Preliminary Blood No Growth after 24 hours 03/22/20 17:00 Urine Culture - Preliminary Urine,Voided Gram Neg Bacilli
--- NOTE | 2020-03-24 15:54 | P.PN ---
Subjective Progress Note Date: 03/24/20 Principal diagnosis: Severe symptomatic anemia Is a pleasant 80-year-old white male patient with a past medical history of coronary artery disease and atrial fibrillation on the [facility]. Throat toes currently on hold he was admitted to the hospital because of severe symptomatic anemia and a hemoglobin of 7. He received 1 unit of packed red blood cell transfusion. He states he has dark-colored stools because of the oral iron that he takes. He denies any bright red blood per rectum. He does state he has some abdominal tenderness in the lower abdominal region, no nausea or vomiting. He has been afebrile. No acute changes through the night. Objective - Vital Signs Vital signs: Vital Signs Temp 94.5 F L 03/23/20 14:48 Pulse 60 03/24/20 08:13 Resp 18 03/24/20 08:13 BP 112/69 03/24/20 08:13 Pulse Ox 97 03/24/20 08:13 Intake & Output 03/23/20 03/24/20 03/24/20 18:59 06:59 18:59 Other: Voiding Method Indwelling Catheter Indwelling Catheter Indwelling Catheter # Voids 2 375 # Bowel Movements 2 - Exam General appearance: The patient is alert, oriented, in no acute distress. Obese. HET: Head is normocephalic and atraumatic. Conjunctiva pink. Sclera and icteric. Neck: Supple without lymphadenopathy. Abdomen: Soft, obese, mild lower abdominal tenderness, nondistended with bowel sounds. No guarding or rigidity. Extremities: Normal skin color and turgor. No pedal edema Neurological: No focal deficits. Alert and oriented 3. - Labs CBC & Chem 7: 03/24/20 06:11 03/24/20 06:11 Labs: Abnormal Lab Results - Last 24 Hours (Table) 03/23/20 03/24/20 03/24/20 Range/Units 05:04 06:11 06:11 WBC 10.8 H (3.8-10.6) k/uL RBC 2.72 L (4.30-5.90) m/uL Hgb 9.0 L (13.0-17.5) gm/dL Hct 27.0 L (39.0-53.0) % Plt Count 115 L (150-450) k/uL Retic Count 2.6 H (0.5-2.0) % Iron 22 L (65-175) ug/dL TIBC 212 L (228-460) ug/dL % Saturation 10.38 L (15.00-50.00) Ferritin 350.4 H (22.0-322.0) ng/mL Microbiology - Last 24 Hours (Table) 03/22/20 21:01 Blood Culture - Preliminary Blood No Growth after 24 hours 03/22/20 17:00 Urine Culture - Preliminary Urine,Voided Gram Neg Bacilli Assessment and Plan (1) Anemia Narrative/Plan: Severe symptomatic anemia with an initial hemoglobin of 7 but clinically no evidence of active bleeding. The patient has been having intermittent dark colored stools but he believes this is most likely related to iron supplements. He did have an EGD and colonoscopy in October 2019 by Doctor Radu Andrew, [facility] that showed normal upper endoscopy, but colonoscopy revealed a 2 cm tubular adenoma. The patient has been on iron supplements regularly. He is also on Xarelto for atrial fibrillation, which is currently on hold. The patient is currently undergoing a small bowel video capsule endoscopy. He states his bowels are still dark, however no rectal bleeding. Hemoglobin is stable at 9.0 Current Visit: Yes Status: Acute Code(s): D64.9 - ANEMIA, UNSPECIFIED SNOMED Code(s): 899891965 (2) GERD (gastroesophageal reflux disease) Narrative/Plan: History of gastroesophageal reflux disease on Protonix 40 mg daily Current Visit: Yes Status: Acute Code(s): K21.9 - GASTRO-ESOPHAGEAL REFLUX DISEASE WITHOUT ESOPHAGITIS SNOMED Code(s): 218624273 (3) Chronic kidney disease Current Visit: Yes Status: Acute Code(s): N18.9 - CHRONIC KIDNEY DISEASE, UNSPECIFIED SNOMED Code(s): 954557393 (4) Urinary tract infection Narrative/Plan: Currently on broad-spectrum antibiotics Current Visit: Yes Status: Acute Code(s): N39.0 - URINARY TRACT INFECTION, SITE NOT SPECIFIED SNOMED Code(s): 38697816 (5) Coronary artery disease Narrative/Plan: History of coronary artery disease, status post coronary artery bypass grafting several years ago Current Visit: Yes Status: Acute Code(s): I25.10 - ATHSCL HEART DISEASE OF [place] CORONARY ARTERY W/O ANG PCTRS SNOMED Code(s): 25834572 (6) General weakness Current Visit: Yes Status: Acute Code(s): R53.1 - WEAKNESS SNOMED Code(s): 18871070 Plan: 1. Continue to hold Xarelto 2. Patient currently undergoing small bowel capsule endoscopy to evaluate small bowel source of occult GI blood loss 3. May increase to a renal diet for dinner 4. Monitor CBC daily 5. Continue Protonix 40 mg daily 6. Iron studies obtained 7. Will follow with you closely Dr. Perez Lovelace I agree with the dictator's note, documented as a scribe by Mona Lezama.
--- NOTE | 2020-03-24 16:11 | PN ---
PROGRESS NOTE DATE OF SERVICE: 03/24/2020 This 80-year-old gentleman who was admitted with significant renal failure and anemia is being closely monitored. Patient was also recommended a capsule enteroscopy at this time. The patient also had acute UTI. The cultures are showing Gram-negative bacilli; final report is pending at this time. Hemoglobin is 9 currently. The patient also had multiple other abnormalities. Creatinine has improved from 4.7 to 3.7. Stool OB is also positive. Patient was also seen by multiple consultants, including Dr. Soriano. Etiology of renal failure thought to be hypovolemia and diuresis. Patient is being closely monitored. No chest pain. No palpitations. PHYSICAL EXAMINATION: Alert and oriented x3. Pulse 60, blood pressure 112/69, respiration 18, temperature normal, pulse ox 97% on 2 L. HEENT: Conjunctivae normal. NECK: No jugular venous distention. CARDIOVASCULAR SYSTEM: S1, S2 muffled. RESPIRATORY SYSTEM: Breath sounds diminished at the bases. No rhonchi. No crackles. ABDOMEN: Soft, non-tender. LEGS: No edema. No swelling. NERVOUS SYSTEM: No focal deficit. LABS: WBC 10.3, hemoglobin 9. Retic count is 2.6. Other labs are noted. ASSESSMENT: 1. Anemia, acute on chronic, with acute blood loss anemia. 2. Acute renal failure with acute prerenal factors, acute tubular necrosis secondary from dehydration, prerenal factors. 3. Acute urinary tract infection, present on admission, with Gram-negative bacilli. 4. Shortness of breath, multifactorial. 5. Increased white count. 6. Thrombocytopenia. 7. History of gastrointestinal bleed and polypectomy previously. 8. History of gastroesophageal reflux disease. 9. Hypertension. 10.Hyperlipidemia. 11.History of Clostridium difficile colitis. 12.Coronary artery disease, coronary artery bypass grafting, stent history. 13.History of pacemaker. 14.Obesity with body mass index of 36.9. RECOMMENDATIONS AND DISCUSSION: I recommend to continue current medications, continue with the monitoring, symptomatic treatment. Monitor hemoglobin closely. Continue IV fluids. Creatinine is still elevated at 3.7. Avoid nephrotoxic medications. Guarded prognosis. Further recommendations to follow. MMODL / IJN: [id number] /
[2020-03-24] MEDS: SODIUM FERRIC GLUCONAT-SUCROSE 125 MG in SODIUM CHLORIDE 0.9% 100 ML IVPB SCH (16:56)
[2020-03-24] MEDS: PRAVASTATIN SODIUM 20 MG TAB PO SCH (20:55)
[2020-03-24] MEDS: allopurinoL 100 MG TAB PO SCH (20:55)
[2020-03-24] MEDS: METOPROLOL TARTRATE 25 MG TAB PO SCH (20:55)
[2020-03-24] MEDS: LACTOBACILLUS ACIDOPH & BULGAR 1 EACH PACKET PO SCH (20:56)
[2020-03-24] MEDS: SODIUM CHLORIDE 0.9% 1,000 ML IV SCH (20:58)
[2020-03-25 06:50] LABS: African American GFR (CKD) 27 (>60 ml/min/1.73 sqM); Anion Gap 6 mmol/L; Blood Urea Nitrogen 68 mg/dL (9-20); Calcium 8.8 mg/dL (8.4-10.2); Carbon Dioxide 21 mmol/L (22-30); Chloride 109 mmol/L (98-107); Glucose 150 mg/dL (74-99); Non-African American GFR(CKD) 23 (>60 ml/min/1.73 sqM); Sodium 136 mmol/L (137-145)
[2020-03-25 07:04] LABS: Magnesium 2.2 mg/dL (1.6-2.3); Potassium 5.3 mmol/L (3.5-5.1)
[2020-03-25] MEDS: PANTOPRAZOLE 40 MG/10 ML VIAL IV SCH (07:37)
[2020-03-25] MEDS: SACUBITRIL/VALSARTAN 97 MG-103 MG TABLET PO SCH ×2 (07:38→20:28)
[2020-03-25] MEDS: SPIRONOLACTONE 25 MG TAB PO SCH (07:38)
[2020-03-25] MEDS: TAMSULOSIN 0.4 MG CAP.ER.24H PO SCH (07:38)
[2020-03-25] MEDS: SODIUM FERRIC GLUCONAT-SUCROSE 125 MG in SODIUM CHLORIDE 0.9% 100 ML IVPB SCH (08:27)
[2020-03-25 09:18] LABS: HCT 27.7 % (39.0-53.0); HGB 9.2 gm/dL (13.0-17.5); Hypochromasia Slight; MCH 32.7 pg (25.0-35.0); MCHC 33.2 g/dL (31.0-37.0); MCV 98.6 fL (80.0-100.0); Macrocytosis Slight; Mean Platelet Volume 9.6; Platelet Count 116 k/uL (150-450); RBC 2.81 m/uL (4.30-5.90); RDW 15.3 % (11.5-15.5); WBC 9.1 k/uL (3.8-10.6)
--- NOTE | 2020-03-25 10:57 | XR ---
EXAMINATION TYPE: XR chest 1V portable DATE OF EXAM: 03/25/2020 COMPARISON: 03/22/2020 INDICATION: Short of breath and chest pain TECHNIQUE: Single frontal view of the chest is obtained. FINDINGS: The heart size is mild prominent. The pulmonary vasculature is normal. The lungs are clear. Pacemaker overlies left chest IMPRESSION: 1. No acute pulmonary process. 2. Mild cardiomegaly
--- NOTE | 2020-03-25 12:57 | P.PN ---
Subjective Patient is seen in follow-up for acute kidney injury on chronic kidney disease. Creatinine down to 2.52 today. Diuretics are held. He is maintained on IV fluids. Has a Argueta catheter. Nonoliguric. No chest pain or shortness of breath. Vital signs are stable. General: The patient appeared well nourished and normally developed. HEENT: Head exam is unremarkable. Neck is without jugular venous distension. LUNGS: Breath sounds decreased. HEART: Rate and Rhythm are regular. ABDOMEN: Soft, nontender. EXTREMITITES: No edema. Objective - Vital Signs Vital signs: Vital Signs Temp 98.7 F 03/25/20 07:31 Pulse 60 03/25/20 07:31 Resp 18 03/25/20 07:31 BP 112/69 03/25/20 07:31 Pulse Ox 95 03/25/20 09:09 Intake & Output 03/24/20 03/25/20 03/25/20 18:59 06:59 18:59 Output Total 800 700 Balance -800 -700 Output: Urine 800 700 Other: Voiding Method Indwelling Catheter Indwelling Catheter Indwelling Catheter # Bowel Movements 1 - Labs CBC & Chem 7: 03/25/20 05:31 03/25/20 11:15 Labs: Abnormal Lab Results - Last 24 Hours (Table) 03/25/20 03/25/20 03/25/20 Range/Units 05:31 05:31 11:15 RBC 2.81 L (4.30-5.90) m/uL Hgb 9.2 L (13.0-17.5) gm/dL Hct 27.7 L (39.0-53.0) % Plt Count 116 L (150-450) k/uL Sodium 136 L (137-145) mmol/L Potassium 5.3 H (3.5-5.1) mmol/L Chloride 109 H (98-107) mmol/L Carbon Dioxide 21 L (22-30) mmol/L BUN 68 H (9-20) mg/dL Creatinine 2.52 H (0.66-1.25) mg/dL Glucose 150 H (74-99) mg/dL Troponin I 0.081 H* (0.000-0.034) ng/mL Microbiology - Last 24 Hours (Table) 03/22/20 21:01 Blood Culture - Preliminary Blood No Growth after 48 hours 03/22/20 17:00 Urine Culture - Final Urine,Voided Escherichia coli Assessment and Plan Plan: Assessment: 1. Acute kidney injury mostly prerenal secondary to hypovolemia from diuresis and anemia. Creatinine was 4.7 on admission is 2.52 today. Unknown baseline renal function. No hydronephrosis noted on kidney ultrasound. 2. Rule out chronic kidney disease. 3. Acute blood loss anemia. Status post blood transfusion. GI following. Small bowel capsule endoscopy results pending. Hemoglobin 9.2 today. Iron deficiency noted. 4. Metabolic acidosis secondary to acute kidney injury. 5. Chronic systolic CHF with ejection fraction of 20-25%. 6. UTI with culture positive for e. coli maintained on antibiotics. 7. Urinary retention. Currently has a Argueta catheter. Plan: Hold torsemide. Hold spironolactone and entresto for systolic blood pressure less than 90 per cardiology. Maintain normal saline at 50 mL an hour. IV iron 3 doses. Second dose today. Repeat electrolytes in the morning.
--- NOTE | 2020-03-25 12:58 | P.PN ---
Subjective Progress Note Date: 03/25/20 Principal diagnosis: Severe symptomatic anemia This is a pleasant 80-year-old white male patient with a past medical history of coronary artery disease and atrial fibrillation on the [facility]. Throat toes currently on hold he was admitted to the hospital because of severe symptomatic anemia and a hemoglobin of 7. He received 1 unit of packed red blood cell transfusion. He states he is still having dark stools, but smaller amount. He denies any bright red blood per rectum. He states he is having some increased shortness of breath that started this morning after he got out, states that he feels like he pulled some muscles through his chest wall. He denies any abdo gus pain today, no nausea or vomiting. He underwent a small bowel video capsule endoscopy yesterday, results are pending. Objective - Vital Signs Vital signs: Vital Signs Temp 98.7 F 03/25/20 07:31 Pulse 60 03/25/20 07:31 Resp 18 03/25/20 07:31 BP 112/69 03/25/20 07:31 Pulse Ox 91 L 03/25/20 07:31 Intake & Output 03/24/20 03/25/20 03/25/20 18:59 06:59 18:59 Output Total 800 700 Balance -800 -700 Output: Urine 800 700 Other: Voiding Method Indwelling Catheter Indwelling Catheter Indwelling Catheter # Bowel Movements 1 - Exam General appearance: The patient is alert, oriented, in no acute distress. Obese. HET: Head is normocephalic and atraumatic. Conjunctiva pink. Sclera and icteric. Neck: Supple without lymphadenopathy. Abdomen: Soft, obese, nontender, nondistended with bowel sounds. No guarding or rigidity. Extremities: Normal skin color and turgor. No pedal edema Neurological: No focal deficits. Alert and oriented 3. - Labs CBC & Chem 7: 03/25/20 05:31 03/25/20 11:15 Labs: Abnormal Lab Results - Last 24 Hours (Table) 03/24/20 03/24/20 03/25/20 Range/Units 06:11 06:11 05:31 WBC 10.8 H (3.8-10.6) k/uL RBC 2.72 L (4.30-5.90) m/uL Hgb 9.0 L (13.0-17.5) gm/dL Hct 27.0 L (39.0-53.0) % Plt Count 115 L (150-450) k/uL Sodium 136 L (137-145) mmol/L Potassium 5.3 H (3.5-5.1) mmol/L Chloride 109 H (98-107) mmol/L Carbon Dioxide 21 L (22-30) mmol/L BUN 78.0 H 68 H (9.0-27.0) mg/dL Creatinine 3.7 H 2.52 H (0.6-1.5) mg/dL Est GFR (CKD-EPI)AfAm 16.9 L (60.0-200.0) Est GFR (CKD-EPI)NonAf 14.6 L (60.0-200.0) BUN/Creatinine Ratio 21.08 H (12.00-20.00) Ratio Glucose 155 H 150 H (70-110) mg/dL Calcium 8.5 L (8.7-10.3) mg/dL Vitamin B12 1227.0 H (200.0-944.0) pg/mL Microbiology - Last 24 Hours (Table) 03/22/20 21:01 Blood Culture - Preliminary Blood No Growth after 48 hours 03/22/20 17:00 Urine Culture - Final Urine,Voided Escherichia coli Assessment and Plan (1) Anemia Narrative/Plan: Severe symptomatic anemia with an initial hemoglobin of 7 but clinically no evidence of active bleeding. The patient has been having intermittent dark colored stools but he believes this is most likely related to iron supplements. He did have an EGD and colonoscopy in October 2019 by Doctor Radu Andrew, [facility] that showed normal upper endoscopy, but colonoscopy revealed a 2 cm tubular adenoma. The patient has been on iron supplements regularly. He is also on Xarelto for atrial fibrillation, which is currently on hold. The patient underwent small bowel video capsule endoscopy yesterday, however the camera did not progress through the small bowel and testing was inconclusive. Hemoglobin remained stable and 9.3. Current Visit: Yes Status: Acute Code(s): D64.9 - ANEMIA, UNSPECIFIED SNOMED Code(s): 343280297 (2) GERD (gastroesophageal reflux disease) Narrative/Plan: History of gastroesophageal reflux disease on Protonix 40 mg daily Current Visit: Yes Status: Acute Code(s): K21.9 - GASTRO-ESOPHAGEAL REFLUX DISEASE WITHOUT ESOPHAGITIS SNOMED Code(s): 705259561 (3) Chronic kidney disease Current Visit: Yes Status: Acute Code(s): N18.9 - CHRONIC KIDNEY DISEASE, UNSPECIFIED SNOMED Code(s): 293844642 (4) Urinary tract infection Narrative/Plan: Currently on broad-spectrum antibiotics Current Visit: Yes Status: Acute Code(s): N39.0 - URINARY TRACT INFECTION, SITE NOT SPECIFIED SNOMED Code(s): 76060688 (5) Coronary artery disease Narrative/Plan: History of coronary artery disease, status post coronary artery bypass grafting several years ago Current Visit: Yes Status: Acute Code(s): I25.10 - ATHSCL HEART DISEASE OF [place] CORONARY ARTERY W/O ANG PCTRS SNOMED Code(s): 72453728 (6) General weakness Current Visit: Yes Status: Acute Code(s): R53.1 - WEAKNESS SNOMED Code(s): 90452033 Plan: 1. Continue to hold Xarelto, discussed with cardiology and they are in agreement. 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 2. Small bowel video capsule endoscopy performed, findings inconclusive due to incomplete study through small bowel 3. May increase to a renal diet for dinner 4. Monitor CBC daily 5. Continue Protonix 40 mg daily 6. Iron studies obtained, IV iron 3 doses ordered 7. Will follow with you closely Dr. Perez Lovelace I agree with the dictator's note, documented as a scribe by Mona Lezama.
--- NOTE | 2020-03-25 13:02 | P.PN ---
Subjective Progress Note Date: 03/25/20 CHIEF COMPLAINT: Cardiac evaluation HISTORY OF PRESENT ILLNESS: 03/23/2020 This is a 80-year-old male with a past medical history significant for coronary artery disease with previous CABG, AICD, atrial fibrillation, hypertension, and hyperlipidemia. Patient follows with a ring facer in [place]. We have been asked to see the patient in consultation for cardiac evaluation. Patient was transferred from [facility] secondary to weakness, fatigue, anemia, fall, and renal failure. Patient's hemoglobin was found to be 7.5 and he received 1 unit RBC transfusion. Patient examined this morning in the emergency room. Patient states he recently underwent EGD and colonoscopy in October and had a polyp removed. He reports chronic black stools secondary to iron therapy. He reports shortness of breath which has been chronic over the past several months. He denies chest pain or pressure. EKG reveals ventricular paced rhythm. Chest xray moderate cardiomegaly. No acute process. Laboratory data: WBC 8.2. Hemoglobin 9.3. Platelet count 104. Sodium 135. Potassium 4.5. BUN 74. Creatinine 3.9. Current home cardiac medications include Xarelto 15 mg today, pravastatin 10 mg daily, metoprolol 25 mg daily, spironolactone 12.5 mg daily, Demadex 20 mg daily, and Entresto 97-103mg BID. 03/24/2020 Patient examined this morning at the bedside. Patient is scheduled for a small bowel capsule study today per GI service. Xarelto remains on hold. Echocardiogram completed revealed ejection fraction 20-25%, trace to mild aortic regurgitation, mild tricuspid regurgitation, mild mitral regurgitation, and mild pulmonary hypertension. Vital signs stable. Blood pressure 112/69. Heart rate in the 60s. He is on 2 L nasal cannula with oxygen saturations greater than 92%. 03/25/2020 Patient examined this morning at the bedside. Patient underwent small bowel capsule study yesterday. Results are currently pending. Patient reports his shortness of breath remains about the same. Blood pressure 112/69. Heart rate in the 60s. He is on 2 L nasal cannula with oxygen saturations greater than 92%. Creatinine 2.52. PHYSICAL EXAM: VITAL SIGNS: Reviewed. GENERAL: Well-developed in no acute distress. HEENT: Head is normocephalic. Pupils are equal, round. Sclerae anicteric. Mucous membranes of the mouth are moist. Neck supple. No JVD or thyromegaly LUNGS: Respirations even and unlabored. Lungs diminished. HEART: Regular rate and rhythm. S1 and S2 heard. ABDOMEN: Soft. Nondistended. Nontender. EXTREMITIES: Normal range of motion. No clubbing or cyanosis. Peripheral pulses intact. No lower extremity edema NEUROLOGIC: Awake and alert. Oriented x 3. ASSESSMENT: Weakness, fatigue, and fall from standing Shortness of breath Chronic persistent atrial fibrillation, on anticoagulation with Xarelto Anemia, status post EGD and colonoscopy in October 2019 Acute renal failure Coronary artery disease with previous stent placement and CABG Ischemic cardiomyopathy, ejection fraction 20-25% History of AICD insertion Hypertension Hyperlipidemia PLAN: Nephrology following for acute renal failure Await results of small bowel capsule study Monitor hemoglobin Continue to hold Xarelto Further recommendations pending patient course Nurse practitioner note has been reviewed by physician. Signing provider agrees with the documented findings, assessment, and plan of care. Objective - Vital Signs Vital signs: Vital Signs Temp 98.7 F 03/25/20 07:31 Pulse 60 03/25/20 07:31 Resp 18 03/25/20 07:31 BP 112/69 03/25/20 07:31 Pulse Ox 95 03/25/20 09:09 Intake & Output 03/24/20 03/25/20 03/25/20 18:59 06:59 18:59 Output Total 800 700 Balance -800 -700 Output: Urine 800 700 Other: Voiding Method Indwelling Catheter Indwelling Catheter Indwelling Catheter # Bowel Movements 1 - Labs CBC & Chem 7: 03/25/20 05:31 03/25/20 11:15 Labs: Abnormal Lab Results - Last 24 Hours (Table) 03/25/20 03/25/20 Range/Units 05:31 05:31 RBC 2.81 L (4.30-5.90) m/uL Hgb 9.2 L (13.0-17.5) gm/dL Hct 27.7 L (39.0-53.0) % Plt Count 116 L (150-450) k/uL Sodium 136 L (137-145) mmol/L Potassium 5.3 H (3.5-5.1) mmol/L Chloride 109 H (98-107) mmol/L Carbon Dioxide 21 L (22-30) mmol/L BUN 68 H (9-20) mg/dL Creatinine 2.52 H (0.66-1.25) mg/dL Glucose 150 H (74-99) mg/dL Microbiology - Last 24 Hours (Table) 03/22/20 21:01 Blood Culture - Preliminary Blood No Growth after 48 hours 03/22/20 17:00 Urine Culture - Final Urine,Voided Escherichia coli
[2020-03-25] MEDS: THIAMINE 100 MG TAB PO SCH (13:28)
[2020-03-25] MEDS: FOLIC ACID 1 MG TAB PO SCH (13:28)
[2020-03-25] MEDS: MULTIVITAMINS, THERA 1 EACH TAB PO SCH (13:28)
--- NOTE | 2020-03-25 16:15 | PN ---
PROGRESS NOTE DATE OF SERVICE: 03/25/2020 INTERVAL HISTORY: This is an 80-year-old gentleman who was admitted with significant renal failure and acute on chronic blood-loss anemia. Also patient has a UTI. Patient is being closely monitored. The urine culture showed E coli which is sensitive to ceftriaxone. No chest pain. No palpitations. The sensorium is slightly improved. The patient had been complaining of some shortness of breath and some chest pain this morning. The chest x- ray which was reviewed personally by me showed no acute pulmonary process and mild cardiomegaly. PHYSICAL EXAMINATION: GENERAL: Patient is alert and oriented times two. VITAL SIGNS: Pulse 60, blood pressure 130/60, respirations 18, temperature 98.7, pulse ox 91% on room air HEENT: Conjunctivae normal. NECK: No jugular venous distention. No carotid bruits. No lymph node enlargement. RESPIRATORY: Breath sounds diminished at the bases. A few scattered rhonchi and crackles. HEART: S1 and S2, muffled. ABDOMEN: Soft, no tenderness. No masses palpable. EXTREMITIES: No edema, no swelling. NERVOUS: No focal deficits. LABS: At this time shows WBC 9.2, hemoglobin 9.2, sodium 132, potassium 5.3 and creatinine is 2.52. Troponin 0.081. ASSESSMENT: 1. Anemia, acute on chronic, acute blood loss anemia, etiology undetermined. 2. Acute renal failure with acute prerenal factors with acute tubular necrosis secondary to dehydration AND prerenal factors. 3. Acute urinary tract infection present on admission with E coli. 4. Shortness of breath, multifactorial. 5. Increased WBC. 6. Thrombocytopenia. 7. History of gastroesophageal reflux disease. 8. History of gastrointestinal bleed and polypectomy previously. 9. Hypertension. 10.Hyperlipidemia. 11.History of C difficile colitis. 12.Coronary artery disease and coronary artery bypass graft with stent history. 13.History of pacemaker. 14.Obesity with body mass index of 36.9. RECOMMENDATIONS AND DISCUSSION: Recommend to continue current medications, continue with symptomatic treatment. Continue with IV fluids. Monitor closely. Chest x-ray reviewed. Closely monitor with multiple consultants. Prognosis guarded. PT OT evaluation. Further recommendations to follow. Patient is following by Dr. Vargas in the outpatient setting. MMODL / IJN: [id number] /
[2020-03-25] MEDS: SODIUM CHLORIDE 0.9% 1,000 ML IV SCH (20:25)
[2020-03-25] MEDS: LACTOBACILLUS ACIDOPH & BULGAR 1 EACH PACKET PO SCH (20:27)
[2020-03-25] MEDS: METOPROLOL TARTRATE 25 MG TAB PO SCH (20:28)
[2020-03-25] MEDS: PRAVASTATIN SODIUM 20 MG TAB PO SCH (20:29)
[2020-03-25] MEDS: allopurinoL 100 MG TAB PO SCH (20:29)
[2020-03-26 06:16] LABS: HCT 27.2 % (39.0-53.0); HGB 8.8 gm/dL (13.0-17.5); Hypochromasia Slight; MCH 32.1 pg (25.0-35.0); MCHC 32.3 g/dL (31.0-37.0); MCV 99.4 fL (80.0-100.0); Macrocytosis Slight; Mean Platelet Volume 8.6; Platelet Count 116 k/uL (150-450); RBC 2.73 m/uL (4.30-5.90); RDW 15.9 % (11.5-15.5); WBC 7.1 k/uL (3.8-10.6)
[2020-03-26] MEDS: SACUBITRIL/VALSARTAN 97 MG-103 MG TABLET PO SCH ×2 (07:19→22:37)
[2020-03-26] MEDS: TAMSULOSIN 0.4 MG CAP.ER.24H PO SCH (07:19)
[2020-03-26] MEDS: PANTOPRAZOLE 40 MG/10 ML VIAL IV SCH (07:20)
[2020-03-26] MEDS: SPIRONOLACTONE 25 MG TAB PO SCH (07:20)
[2020-03-26] MEDS: SODIUM FERRIC GLUCONAT-SUCROSE 125 MG in SODIUM CHLORIDE 0.9% 100 ML IVPB SCH (08:39)
--- NOTE | 2020-03-26 10:01 | P.PN ---
Subjective Progress Note Date: 03/26/20 CHIEF COMPLAINT: Cardiac evaluation HISTORY OF PRESENT ILLNESS: 03/23/2020 This is a 80-year-old male with a past medical history significant for coronary artery disease with previous CABG, AICD, atrial fibrillation, hypertension, and hyperlipidemia. Patient follows with a rock wool insulator in [place]. We have been asked to see the patient in consultation for cardiac evaluation. Patient was transferred from [facility] secondary to weakness, fatigue, anemia, fall, and renal failure. Patient's hemoglobin was found to be 7.5 and he received 1 unit RBC transfusion. Patient examined this morning in the emergency room. Patient states he recently underwent EGD and colonoscopy in October and had a polyp removed. He reports chronic black stools secondary to iron therapy. He reports shortness of breath which has been chronic over the past several months. He denies chest pain or pressure. EKG reveals ventricular paced rhythm. Chest xray moderate cardiomegaly. No acute process. Laboratory data: WBC 8.2. Hemoglobin 9.3. Platelet count 104. Sodium 135. Potassium 4.5. BUN 74. Creatinine 3.9. Current home cardiac medications include Xarelto 15 mg today, pravastatin 10 mg daily, metoprolol 25 mg daily, spironolactone 12.5 mg daily, Demadex 20 mg daily, and Entresto 97-103mg BID. 03/24/2020 Patient examined this morning at the bedside. Patient is scheduled for a small bowel capsule study today per GI service. Xarelto remains on hold. Echocardiogram completed revealed ejection fraction 20-25%, trace to mild aortic regurgitation, mild tricuspid regurgitation, mild mitral regurgitation, and mild pulmonary hypertension. Vital signs stable. Blood pressure 112/69. Heart rate in the 60s. He is on 2 L nasal cannula with oxygen saturations greater than 92%. 03/25/2020 Patient examined this morning at the bedside. Patient underwent small bowel capsule study yesterday. Results are currently pending. Patient reports his shortness of breath remains about the same. Blood pressure 112/69. Heart rate in the 60s. He is on 2 L nasal cannula with oxygen saturations greater than 92%. Creatinine 2.52. 03/26/2020 Patient underwent small bowel capsule study. Camera did not progress through the small bowel and testing was inconclusive. Patients hemoglobin remains stable.8.8 today. He denies any chest pain or pressure. Reports shortness of breath is stable. PHYSICAL EXAM: VITAL SIGNS: Reviewed. GENERAL: Well-developed in no acute distress. HEENT: Head is normocephalic. Pupils are equal, round. Sclerae anicteric. Mucous membranes of the mouth are moist. Neck supple. No JVD or thyromegaly LUNGS: Respirations even and unlabored. Lungs diminished. HEART: Regular rate and rhythm. S1 and S2 heard. ABDOMEN: Soft. Nondistended. Nontender. EXTREMITIES: Normal range of motion. No clubbing or cyanosis. Peripheral pulses intact. No lower extremity edema NEUROLOGIC: Awake and alert. Oriented x 3. ASSESSMENT: Weakness, fatigue, and fall from standing Shortness of breath Chronic persistent atrial fibrillation, on anticoagulation with Xarelto Anemia, status post EGD and colonoscopy in October 2019 Acute renal failure Coronary artery disease with previous stent placement and CABG Ischemic cardiomyopathy, ejection fraction 20-25% History of AICD insertion Hypertension Hyperlipidemia PLAN: Continue to hold Xarelto. Do not resume at discharge. Patient may be discharged from a cardiac standpoint. He is to follow up with his rock wool insulator in [place]. We will sign off. Please reconsult if needed Nurse practitioner note has been reviewed by physician. Signing provider agrees with the documented findings, assessment, and plan of care. Objective - Vital Signs Vital signs: Vital Signs Temp 97.4 F L 03/26/20 07:52 Pulse 60 03/26/20 07:52 Resp 18 03/26/20 07:52 BP 95/58 03/26/20 07:52 Pulse Ox 95 03/26/20 07:52 Intake & Output 03/25/20 03/26/20 03/26/20 18:59 06:59 18:59 Intake Total 500 720 Output Total 1500 950 Balance -1000 -230 Intake: IV 500 Sodium Chloride 0.9% 1, 500 000 ml @ 50 mls/hr IV . Q20H [facility] Rx#:[id number] Oral 720 Output: Urine 1500 950 Uretheral (Argueta) 750 Other: Voiding Method Indwelling Catheter Indwelling Catheter # Bowel Movements 1 - Labs CBC & Chem 7: 03/26/20 05:30 03/25/20 11:15 Labs: Abnormal Lab Results - Last 24 Hours (Table) 03/25/20 03/26/20 Range/Units 11:15 05:30 RBC 2.73 L (4.30-5.90) m/uL Hgb 8.8 L (13.0-17.5) gm/dL Hct 27.2 L (39.0-53.0) % RDW 15.9 H (11.5-15.5) % Plt Count 116 L (150-450) k/uL Troponin I 0.081 H* (0.000-0.034) ng/mL Microbiology - Last 24 Hours (Table) 03/22/20 21:01 Blood Culture - Preliminary Blood No Growth after 72 hours
[2020-03-26 10:03] LABS: African American GFR (CKD) 33.4 (60.0-200.0); Anion Gap 7.7 mmol/L (4.00-12.00); BUN/Creat Ratio 26.67 Ratio (12.00-20.00); Calcium 8.8 mg/dL (8.7-10.3); Carbon Dioxide 24.3 mmol/L (21.6-31.8); Magnesium 2.2 mg/dL (1.5-2.4); Non-African American GFR(CKD) 28.9 (60.0-200.0)
--- NOTE | 2020-03-26 11:16 | P.PN ---
Subjective Patient is seen in follow-up for acute kidney injury on chronic kidney disease. Creatinine down to 2.1 today. Diuretics are held. He is maintained on IV fluids. Has a Argueta catheter. Nonoliguric. No chest pain or shortness of breath. Vital signs are stable. General: The patient appeared well nourished and normally developed. HEENT: Head exam is unremarkable. Neck is without jugular venous distension. LUNGS: Breath sounds decreased. HEART: Rate and Rhythm are regular. ABDOMEN: Soft, nontender. EXTREMITITES: No edema. Objective - Vital Signs Vital signs: Vital Signs Temp 97.4 F L 03/26/20 07:52 Pulse 60 03/26/20 07:52 Resp 18 03/26/20 08:00 BP 95/58 03/26/20 07:52 Pulse Ox 95 03/26/20 07:52 Intake & Output 03/25/20 03/26/20 03/26/20 18:59 06:59 18:59 Intake Total 500 720 420 Output Total 1500 950 Balance -1000 -230 420 Intake: IV 500 Sodium Chloride 0.9% 1, 500 000 ml @ 50 mls/hr IV . Q20H [facility] Rx#:[id number] Oral 720 420 Output: Urine 1500 950 Uretheral (Argueta) 750 Other: Voiding Method Indwelling Catheter Indwelling Catheter Indwelling Catheter # Bowel Movements 1 - Labs CBC & Chem 7: 03/26/20 05:30 03/26/20 05:30 Labs: Abnormal Lab Results - Last 24 Hours (Table) 03/25/20 03/26/20 03/26/20 Range/Units 11:15 05:30 05:30 RBC 2.73 L (4.30-5.90) m/uL Hgb 8.8 L (13.0-17.5) gm/dL Hct 27.2 L (39.0-53.0) % RDW 15.9 H (11.5-15.5) % Plt Count 116 L (150-450) k/uL Chloride 110 H (96-109) mmol/L BUN 56.0 H (9.0-27.0) mg/dL Creatinine 2.1 H (0.6-1.5) mg/dL Est GFR (CKD-EPI)AfAm 33.4 L (60.0-200.0) Est GFR (CKD-EPI)NonAf 28.9 L (60.0-200.0) BUN/Creatinine Ratio 26.67 H (12.00-20.00) Ratio Glucose 125 H (70-110) mg/dL Troponin I 0.081 H* (0.000-0.034) ng/mL Microbiology - Last 24 Hours (Table) 03/22/20 21:01 Blood Culture - Preliminary Blood No Growth after 72 hours Assessment and Plan Plan: Assessment: 1. Acute kidney injury mostly prerenal secondary to hypovolemia from diuresis and anemia. Creatinine was 4.7 on admission is 2.1 today. Unknown baseline renal function. No hydronephrosis noted on kidney ultrasound. 2. Rule out chronic kidney disease. 3. Acute blood loss anemia. Status post blood transfusion. GI following. Small bowel capsule endoscopy inconclusive Hemoglobin 8.8 today. Iron deficiency noted. 4. Metabolic acidosis secondary to acute kidney injury. Better. 5. Chronic systolic CHF with ejection fraction of 20-25%. 6. UTI with culture positive for e. coli maintained on antibiotics. 7. Urinary retention. Currently has a Argueta catheter. Plan: Hold torsemide. Hold spironolactone and entresto for systolic blood pressure less than 90 per cardiology. Heplock IVFs. IV iron 3 doses. Last dose today. Repeat electrolytes in the morning.
[2020-03-26] MEDS: MULTIVITAMINS, THERA 1 EACH TAB PO SCH (12:19)
[2020-03-26] MEDS: FOLIC ACID 1 MG TAB PO SCH (12:19)
[2020-03-26] MEDS: THIAMINE 100 MG TAB PO SCH (12:19)
--- NOTE | 2020-03-26 13:26 | P.PN ---
Subjective Progress Note Date: 03/26/20 Principal diagnosis: Severe symptomatic anemia This is a pleasant 80-year-old white male patient with a past medical history of coronary artery disease and atrial fibrillation on the [facility]. Throat toes currently on hold he was admitted to the hospital because of severe symptomatic anemia and a hemoglobin of 7. He received 1 unit of packed red blood cell transfusion. He states he is still having dark stools, but smaller amount. He denies any bright red blood per rectum. He states he is still having some shortness of breath. He denies any chest pain. He denies any abdominal pain but does have some tenderness with palpation. He denies any nausea or vomiting. Today's hemoglobin 8.8. He is status post small bowel capsule endoscopy which was inconclusive. He remains off his Xarelto. Objective - Vital Signs Vital signs: Vital Signs Temp 97.4 F L 03/26/20 07:52 Pulse 60 03/26/20 07:52 Resp 18 03/26/20 08:00 BP 95/58 03/26/20 07:52 Pulse Ox 95 03/26/20 07:52 Intake & Output 03/25/20 03/26/20 03/26/20 18:59 06:59 18:59 Intake Total 500 720 420 Output Total 1500 950 Balance -1000 -230 420 Intake: IV 500 Sodium Chloride 0.9% 1, 500 000 ml @ 50 mls/hr IV . Q20H [facility] Rx#:[id number] Oral 720 420 Output: Urine 1500 950 Uretheral (Argueta) 750 Other: Voiding Method Indwelling Catheter Indwelling Catheter Indwelling Catheter # Bowel Movements 1 - Exam General appearance: The patient is alert, oriented, in no acute distress. Obese . HET: Head is normocephalic and atraumatic. Conjunctiva pink. Sclera and icteric. Neck: Supple without lymphadenopathy. Abdomen: Soft, obese, nontender, nondistended with bowel sounds. No guarding or rigidity. Extremities: Normal skin color and turgor. No pedal edema Neurological: No focal deficits. Alert and oriented 3. - Labs CBC & Chem 7: 03/26/20 05:30 03/26/20 05:30 Labs: Abnormal Lab Results - Last 24 Hours (Table) 03/26/20 03/26/20 Range/Units 05:30 05:30 RBC 2.73 L (4.30-5.90) m/uL Hgb 8.8 L (13.0-17.5) gm/dL Hct 27.2 L (39.0-53.0) % RDW 15.9 H (11.5-15.5) % Plt Count 116 L (150-450) k/uL Chloride 110 H (96-109) mmol/L BUN 56.0 H (9.0-27.0) mg/dL Creatinine 2.1 H (0.6-1.5) mg/dL Est GFR (CKD-EPI)AfAm 33.4 L (60.0-200.0) Est GFR (CKD-EPI)NonAf 28.9 L (60.0-200.0) BUN/Creatinine Ratio 26.67 H (12.00-20.00) Ratio Glucose 125 H (70-110) mg/dL Microbiology - Last 24 Hours (Table) 03/22/20 21:01 Blood Culture - Preliminary Blood No Growth after 72 hours Assessment and Plan (1) Anemia Narrative/Plan: Severe symptomatic anemia with an initial hemoglobin of 7 but clinically no evidence of active bleeding. The patient has been having intermittent dark colored stools but he believes this is most likely related to iron supplements. He did have an EGD and colonoscopy in October 2019 by Doctor Radu Andrew, [facility] that showed normal upper endoscopy, but colonoscopy revealed a 2 cm tubular adenoma. The patient has been on iron supplements regularly. He is also on Xarelto for atrial fibrillation, which is currently on hold. The patient underwent small bowel video capsule endoscopy yesterday, however the camera did not progress through the small bowel and testing was inconclusive. Hemoglobin remained stable and 8.8. Current Visit: Yes Status: Acute Code(s): D64.9 - ANEMIA, UNSPECIFIED SNOMED Code(s): 674755331 (2) GERD (gastroesophageal reflux disease) Narrative/Plan: History of gastroesophageal reflux disease on Protonix 40 mg daily Current Visit: Yes Status: Acute Code(s): K21.9 - GASTRO-ESOPHAGEAL REFLUX DISEASE WITHOUT ESOPHAGITIS SNOMED Code(s): 860681355 (3) Chronic kidney disease Current Visit: Yes Status: Acute Code(s): N18.9 - CHRONIC KIDNEY DISEASE, UNSPECIFIED SNOMED Code(s): 655747362 (4) Urinary tract infection Narrative/Plan: Currently on broad-spectrum antibiotics Current Visit: Yes Status: Acute Code(s): N39.0 - URINARY TRACT INFECTION, SITE NOT SPECIFIED SNOMED Code(s): 73242688 (5) Coronary artery disease Narrative/Plan: History of coronary artery disease, status post coronary artery bypass grafting several years ago Current Visit: Yes Status: Acute Code(s): I25.10 - ATHSCL HEART DISEASE OF [place] CORONARY ARTERY W/O ANG PCTRS SNOMED Code(s): 24035955 (6) General weakness Current Visit: Yes Status: Acute Code(s): R53.1 - WEAKNESS SNOMED Code(s): 40360060 Plan: 1. Continue to hold Xarelto, discussed with cardiology and they are in agreement. 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 2. Small bowel video capsule endoscopy performed, findings inconclusive due to incomplete study through small bowel 3. Continue renal diet 4. Monitor CBC daily 5. Continue Protonix 40 mg daily 6. Iron studies obtained, IV iron 3 doses ordered, continue oral iron on discharge 7. Will follow with you closely Dr. Perez Lovelace I agree with the dictator's note, documented as a scribe by Mona Lezama.
--- NOTE | 2020-03-26 16:15 | PN ---
PROGRESS NOTE DATE OF SERVICE: 03/26/2020 This 80-year-old gentleman who was admitted with significant renal failure and acute renal failure also had anemia. The patient also had UTI. The culture showed E coli which is mostly sensitive. No chest pain. No palpitations. No fever. Patient is complaining of weakness. PHYSICAL EXAMINATION: On exam, alert and oriented x3. Pulse 60, blood pressure 109/70, respiration 18, temperature 97.4, pulse ox 95% on 2 L. HEENT: Conjunctivae normal. NECK: No jugular venous distention. CARDIOVASCULAR: S1, S2 muffled. RESPIRATORY: Breath sounds diminished at the bases. A few rhonchi, no crackles. ABDOMEN: Soft, nontender. LEGS: No edema, no swelling. NERVOUS SYSTEM: Higher functions as mentioned. Moves all 4 limbs. No focal motor or sensory deficits. LYMPHATICS: No lymphadenopathy of the neck, axillae or groin. LABS: Labs are WBC 7.1, hemoglobin is 8.8, and creatinine is 2.1. Troponin 0.081. ASSESSMENT: 1. Anemia acute on chronic with acute blood loss anemia, etiology undetermined. 2. Acute renal failure with acute prerenal renal factors, acute tubular necrosis secondary dehydration prerenal factors. 3. Acute urinary tract infection with Escherichia coli, present on admission, on antibiotics. 4. Shortness of breath, multifactorial. 5. Increased WBC. 6. Thrombocytopenia. 7. History of gastroesophageal reflux disease. 8. History of gastrointestinal bleed and polypectomy previously. 9. Hypertension. 10.Hyperlipidemia. 11.History of Clostridium difficile colitis. 12.History of coronary artery disease, coronary artery bypass grafting, stent history. 13.History of pacemaker. 14.Obesity with body mass index 36.9. RECOMMENDATIONS AND DISCUSSION: Recommend to continue current medications, continue symptomatic treatment. Monitor hemoglobin closely. Monitor creatinine closely. The patient is being closely followed by multiple consultants. Continue with antibiotics. PT, OT evaluation, possible ECF rehab. Guarded prognosis. Further recommendations to follow. MMODL / IJN: [id number] /
[2020-03-26] MEDS: PRAVASTATIN SODIUM 20 MG TAB PO SCH (22:30)
[2020-03-26] MEDS: METOPROLOL TARTRATE 25 MG TAB PO SCH (22:31)
[2020-03-26] MEDS: LACTOBACILLUS ACIDOPH & BULGAR 1 EACH PACKET PO SCH (22:32)
[2020-03-26] MEDS: allopurinoL 100 MG TAB PO SCH (22:37)
[2020-03-27 06:16] LABS: HCT 27.1 % (39.0-53.0); Hypochromasia Slight; MCH 32.3 pg (25.0-35.0); MCHC 33.1 g/dL (31.0-37.0); MCV 97.8 fL (80.0-100.0); Macrocytosis Slight; Mean Platelet Volume 8.1; Platelet Count 116 k/uL (150-450); RBC 2.77 m/uL (4.30-5.90); RDW 15.4 % (11.5-15.5); WBC 8.1 k/uL (3.8-10.6)
[2020-03-27 09:37] LABS: African American GFR (CKD) 40.3 (60.0-200.0); BUN/Creat Ratio 23.33 Ratio (12.00-20.00); Calcium 9.1 mg/dL (8.7-10.3); Non-African American GFR(CKD) 34.8 (60.0-200.0); Potassium 4.2 mmol/L (3.5-5.5)
[2020-03-27] MEDS: PANTOPRAZOLE 40 MG/10 ML VIAL IV SCH (09:43)
[2020-03-27] MEDS: SACUBITRIL/VALSARTAN 97 MG-103 MG TABLET PO SCH ×2 (09:43→22:27)
[2020-03-27] MEDS: THIAMINE 100 MG TAB PO SCH (09:44)
[2020-03-27] MEDS: MULTIVITAMINS, THERA 1 EACH TAB PO SCH (09:44)
[2020-03-27] MEDS: FOLIC ACID 1 MG TAB PO SCH (09:44)
[2020-03-27] MEDS: SPIRONOLACTONE 25 MG TAB PO SCH (09:44)
[2020-03-27] MEDS: TAMSULOSIN 0.4 MG CAP.ER.24H PO SCH (09:45)
[2020-03-27] MEDS: SODIUM FERRIC GLUCONAT-SUCROSE 125 MG in SODIUM CHLORIDE 0.9% 100 ML IVPB SCH (09:57)
--- NOTE | 2020-03-27 11:28 | PN ---
PROGRESS NOTE DATE OF SERVICE: 03/27/2020 Patient is an 80-year-old pleasant white male admitted to hospital with severe symptomatic anemia and hemoglobin of 5 requiring 2 units of PRBC transfusion. The patient denies any active GI bleed. He underwent EGD/colonoscopy in October of 2019 at [facility] that was unremarkable other than small colon polyps. Recently, during this hospitalization, the Xarelto has been on hold and patient had a small bowel capsule endoscopy done but was inconclusive, as the capsule remained in the stomach for the entire 8 hour study and a small bowel could not be visualized. In the meantime, patient is doing well. He has no abdominal pain. He still has some shortness of breath. No nausea, no vomiting. PHYSICAL EXAMINATION: Appears comfortable. VITAL SIGNS: Stable. Blood pressure 199/61, pulse 61, temperature 97.8. HEENT examination unremarkable. Conjunctivae pink. Sclerae anicteric. Oral cavity no lesions. NECK: No JVD. No lymph node enlargement. CHEST was clear to auscultation. HEART: Regular rate and rhythm. ABDOMEN: Soft, it was obese. Bowel sounds are positive. No organomegaly. EXTREMITIES: No pedal edema. NEUROLOGIC: Alert and oriented x3. No focal deficits. LABS: WBC 8.1, hemoglobin 9, platelets 1 6. IMPRESSION: 1. Severe symptomatic anemia with a hemoglobin at 8.7 g/dL, currently stable, no further bleeding. Small bowel capsule endoscopy done two days ago was inconclusive as the capsule did not enter the small bowel and remained in the stomach for the entire eight hour study. Status post EGD/colonoscopy in October of 2019 that showed small colon polyps. 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 2. History of atrial fibrillation on Xarelto, currently on hold. RECOMMENDATIONS: I had a lengthy discussion with the patient regarding management of anemia. At this time, he will continue with iron supplements. We will continue to hold Xarelto for now and he was advised to follow up with his historical records administrator in [place] to discuss further regarding need of anticoagulation versus watchman's procedure because of recurrent iron deficiency anemia. He can be discharged home today from GI standpoint and he can follow up in office in two weeks. Thank you for this consultation. MMODL / IJN: [id number] /
--- NOTE | 2020-03-27 15:12 | P.PN ---
Subjective Progress Note Date: 03/27/20 Follow-up for acute kidney injury. Denies any chest pain shortness of breath palpitations. Objective - Vital Signs Vital signs: Vital Signs Temp 98.7 F 03/27/20 08:00 Pulse 67 03/27/20 08:00 Resp 17 03/27/20 08:00 BP 105/70 03/27/20 08:00 Pulse Ox 96 03/27/20 08:00 Intake & Output 03/26/20 03/27/20 03/27/20 18:59 06:59 18:59 Intake Total 420 0 240 Output Total 500 1300 Balance -80 -1300 240 Intake: Oral 420 0 240 Output: Urine 500 1300 Uretheral (Argueta) 500 Other: Voiding Method Indwelling Catheter Indwelling Catheter # Voids 1 1 # Bowel Movements 1 1 - Exam No acute distress S1-S2 heard Decreased breath sounds Trace edema - Labs CBC & Chem 7: 03/27/20 05:22 03/27/20 05:22 Labs: Abnormal Lab Results - Last 24 Hours (Table) 03/27/20 03/27/20 Range/Units 05:22 05:22 RBC 2.77 L (4.30-5.90) m/uL Hgb 9.0 L (13.0-17.5) gm/dL Hct 27.1 L (39.0-53.0) % Plt Count 116 L (150-450) k/uL BUN 42.0 H (9.0-27.0) mg/dL Creatinine 1.8 H (0.6-1.5) mg/dL Est GFR (CKD-EPI)AfAm 40.3 L (60.0-200.0) Est GFR (CKD-EPI)NonAf 34.8 L (60.0-200.0) BUN/Creatinine Ratio 23.33 H (12.00-20.00) Ratio Glucose 128 H (70-110) mg/dL Microbiology - Last 24 Hours (Table) 03/22/20 21:01 Blood Culture - Preliminary Blood No Growth after 96 hours Assessment and Plan Assessment: #1 nonoliguric acute kidney injury secondary to type I cardiorenal syndrome. #2 CHF with systolic dysfunction EF of 20-25% #3 acute blood loss anemia status post PRBC transfusion #4 E. coli UTI on antibiotics #5 urinary retention status post Argueta Plan: #1 continue with Aldactone and entresto. Renal functions improving. #2 hemoglobin stable. #3 at discharge start on 20 mg of torsemide. #4 add midodrine for hemodynamic support. #5 nephrotoxic agents and hypotensive episodes
[2020-03-27] MEDS: MIDODRINE 5 MG TAB PO SCH (17:30)
[2020-03-27] MEDS: allopurinoL 100 MG TAB PO SCH (22:26)
[2020-03-27] MEDS: LACTOBACILLUS ACIDOPH & BULGAR 1 EACH PACKET PO SCH (22:26)
[2020-03-27] MEDS: METOPROLOL TARTRATE 25 MG TAB PO SCH (22:26)
[2020-03-27] MEDS: PRAVASTATIN SODIUM 20 MG TAB PO SCH (22:27)
--- NOTE | 2020-03-27 22:31 | P.PN ---
Subjective Progress Note Date: 03/27/20 Principal diagnosis: UTI,ALFREDO Mr. Lewis is a 80-year-old male with significant history of CABG status post AICD, atrial fibrillation, hypertension, hyperlipidemia transferred from [facility] secondary to weakness fatigue anemia falls and renal failure. Patient was also found to have a hemoglobin of 7.5 at the time of admission. He is currently being treated for anemia and acute kidney injury along with UTI. On 03/27/2020 -patient been seen and examined on the general medical floors. He is lying comfortably in bed appears to be in no acute distress. Patient denies having any chest pain or palpitations. No cough or difficulty in breathing denies having any fevers or chills or rigors. On reviewing the vitals patient temperature is 98.7 heart rate 67 respiratory rate 17 blood pressure 104/70 saturating at 96% on 2 L of oxygen via nasal cannula on reviewing his labs white count of 8.1, hemoglobin 9, platelets 116. Sodium 140, potassium 4.2, chloride 109, bicarb 24. BUN 42 and creatinine is 1.8. Active Medications Allopurinol (Allopurinol 100 Mg Tab) 200 mg PO [facility] Last Admin: 03/26/20 22:37 Dose: 200 mg Documented by: Alprazolam (Alprazolam 0.25 Mg Tab) 0.25 mg PO TID PRN PRN Reason: Anxiety Folic Acid (Folic Acid 1 Mg Tab) 1 mg PO DAILY@1200 [facility] Last Admin: 03/26/20 12:19 Dose: 1 mg Documented by: Ceftriaxone Sodium 1 gm/ (Sodium Chloride) 50 mls @ 100 mls/hr IVPB Q24HR [facility] Last Admin: 03/26/20 07:20 Dose: 100 mls/hr Documented by: Ferric Sodium Gluconate 125 mg (/ Sodium Chloride) 110 mls @ 100 mls/hr IVPB DAILY [facility] Stop: 03/27/20 13:31 Last Admin: 03/26/20 08:39 Dose: 100 mls/hr Documented by: Lactobacillus Acidoph/Bulgaricus (Lactobacillus Acidoph & Bulgar 1 Each Packet) 1 each PO [facility] Last Admin: 03/26/20 22:32 Dose: Not Given Documented by: Metoprolol Tartrate (Metoprolol Tartrate 25 Mg Tab) 25 mg PO [facility] Last Admin: 01/08/21 22:31 Dose: 25 mg Documented by: Multivitamins (Multivitamins, Thera 1 Each Tab) 1 each PO DAILY@1200 [facility] Last Admin: 03/26/20 12:19 Dose: 1 each Documented by: Naloxone HCl (Naloxone 0.4 Mg/Ml 1 Ml Vial) 0.2 mg IV Q2M PRN PRN Reason: Opioid Reversal Pantoprazole Sodium (Pantoprazole 40 Mg/10 Ml Vial) 40 mg IV DAILY [facility] Last Admin: 03/26/20 07:20 Dose: 40 mg Documented by: Pravastatin Sodium (Pravastatin Sodium 20 Mg Tab) 10 mg PO HS [facility] Last Admin: 03/26/20 22:30 Dose: 10 mg Documented by: Sacubitril/Valsartan (Sacubitril/Valsartan 97 Mg-103 Mg Tablet) 0.5 each PO BID [facility] Last Admin: 03/26/20 22:37 Dose: Not Given Documented by: Spironolactone (Spironolactone 25 Mg Tab) 12.5 mg PO DAILY [facility] Last Admin: 03/26/20 07:20 Dose: Not Given Documented by: Tamsulosin HCl (Tamsulosin 0.4 Mg Cap.Er.24h) 0.4 mg PO DAILY [facility] Last Admin: 03/26/20 07:19 Dose: 0.4 mg Documented by: Thiamine HCl (Thiamine 100 Mg Tab) 100 mg PO DAILY@1200 [facility] Last Admin: 03/26/20 12:19 Dose: 100 mg Documented by: Objective - Vital Signs Vital signs: Vital Signs Temp 97.8 F 03/27/20 00:48 Pulse 61 03/27/20 00:48 Resp 16 03/27/20 00:48 BP 99/61 03/27/20 00:48 Pulse Ox 95 03/27/20 00:48 Intake & Output 03/26/20 03/27/20 03/27/20 18:59 06:59 18:59 Intake Total 420 0 Output Total 500 1300 Balance -80 -1300 Intake: Oral 420 0 Output: Urine 500 1300 Uretheral (Argueta) 500 Other: Voiding Method Indwelling Catheter # Voids 1 1 # Bowel Movements 1 1 - Exam GENERAL: Well-developed in no acute distress. HEENT: Head is normocephalic. Pupils are equal, round. Sclerae anicteric. Mucous membranes of the mouth are moist. Neck supple. No JVD or thyromegaly LUNGS: Respirations even and unlabored. Lungs diminished. HEART: Regular rate and rhythm. S1 and S2 heard. ABDOMEN: Soft. Nondistended. Nontender. EXTREMITIES: Normal range of motion. No clubbing or cyanosis. Peripheral pulses intact. No lower extremity edema NEUROLOGIC: Awake and alert. Oriented x 2-3. - Labs CBC & Chem 7: 03/27/20 05:22 03/27/20 05:22 Labs: Abnormal Lab Results - Last 24 Hours (Table) 03/26/20 03/27/20 Range/Units 05:30 05:22 RBC 2.77 L (4.30-5.90) m/uL Hgb 9.0 L (13.0-17.5) gm/dL Hct 27.1 L (39.0-53.0) % Plt Count 116 L (150-450) k/uL Chloride 110 H (96-109) mmol/L BUN 56.0 H (9.0-27.0) mg/dL Creatinine 2.1 H (0.6-1.5) mg/dL Est GFR (CKD-EPI)AfAm 33.4 L (60.0-200.0) Est GFR (CKD-EPI)NonAf 28.9 L (60.0-200.0) BUN/Creatinine Ratio 26.67 H (12.00-20.00) Ratio Glucose 125 H (70-110) mg/dL Microbiology - Last 24 Hours (Table) 03/22/20 21:01 Blood Culture - Preliminary Blood No Growth after 96 hours Assessment and Plan Assessment: ASSESSMENT Acute on chronic anemia-secondary to blood loss etiology undetermined Acute kidney injury with prerenal factors, possible dehydration Acute UTI with E. coli present on admission Leukocytosis Thrombocytopenia GERD History of GI bleed and polypectomy in the past Hypertension Hyperlipidemia History of C. difficile colitis History of coronary artery disease status post CABG and stenting History of pacemaker Obesity with BMI of 36.9 PLAN: Patient's urine culture is positive for E. coli so we will continue with ceftriaxone. Nephrology on board, following his creatinine levels as he is recovering from acute kidney injury. As the patient has anemia, GI Dr. Lovelace on board, no plan of acute intervention currently. Holding off Xarelto for now due to acute anemia. Continue with the rest of his current medication regimen. Overall prognosis is guarded. Further recommendations depending on the progress of the patient.
[2020-03-28] MEDS ORDERED: ACETAMINOPHEN TAB 325 MG TAB PO PRN (04:16)
[2020-03-28 07:01] LABS: Basophils # (A) 0.1 k/uL (0-0.2); Basophils % (A) 1 %; Eosinophils # (A) 0.3 k/uL (0-0.7); Eosinophils % (A) 4 %; HCT 26.9 % (39.0-53.0); HGB 8.8 gm/dL (13.0-17.5); Hypochromasia Slight; Lymphocytes # (A) 0.6 k/uL (1.0-4.8); Lymphocytes % (A) 8 %; MCH 32.4 pg (25.0-35.0); MCHC 32.9 g/dL (31.0-37.0); MCV 98.5 fL (80.0-100.0); Macrocytosis Slight; Mean Platelet Volume 8.2; Monocytes # (A) 0.4 k/uL (0-1.0); Monocytes % (A) 6 %; Neutrophils # (A) 5.6 k/uL (1.3-7.7); Neutrophils % (A) 79 %; Platelet Count 117 k/uL (150-450); RBC 2.73 m/uL (4.30-5.90); RDW 15.5 % (11.5-15.5); WBC 7.1 k/uL (3.8-10.6)
[2020-03-28] MEDS: SACUBITRIL/VALSARTAN 97 MG-103 MG TABLET PO SCH ×2 (07:55→21:06)
[2020-03-28] MEDS: MIDODRINE 5 MG TAB PO SCH ×3 (07:55→18:20)
[2020-03-28] MEDS: PANTOPRAZOLE 40 MG/10 ML VIAL IV SCH (07:59)
[2020-03-28] MEDS: SPIRONOLACTONE 25 MG TAB PO SCH (07:59)
[2020-03-28] MEDS: TAMSULOSIN 0.4 MG CAP.ER.24H PO SCH (08:00)
[2020-03-28 10:47] LABS: African American GFR (CKD) 50.2 (60.0-200.0); Anion Gap 5.8 mmol/L (4.00-12.00); BUN/Creat Ratio 21.33 Ratio (12.00-20.00); Carbon Dioxide 24.2 mmol/L (21.6-31.8); Non-African American GFR(CKD) 43.3 (60.0-200.0); Potassium 4.3 mmol/L (3.5-5.5)
--- NOTE | 2020-03-28 14:13 | P.PN ---
Subjective Progress Note Date: 03/28/20 Follow-up for acute kidney injury. Denies any chest pain shortness of breath palpitations. Objective - Vital Signs Vital signs: Vital Signs Temp 98.0 F 03/28/20 07:53 Pulse 92 03/28/20 07:53 Resp 18 03/28/20 07:53 BP 125/75 03/28/20 07:53 Pulse Ox 95 03/28/20 02:00 Intake & Output 03/27/20 03/28/20 03/28/20 18:59 06:59 18:59 Intake Total 960 500 Output Total 1200 525 Balance -240 -25 Intake: Oral 960 500 Output: Urine 1200 525 Uretheral (Argueta) 1200 525 Other: Voiding Method Indwelling Catheter - Exam No acute distress S1-S2 heard Decreased breath sounds Trace edema - Labs CBC & Chem 7: 03/28/20 06:10 03/28/20 06:10 Labs: Abnormal Lab Results - Last 24 Hours (Table) 03/28/20 03/28/20 Range/Units 06:10 06:10 RBC 2.73 L (4.30-5.90) m/uL Hgb 8.8 L (13.0-17.5) gm/dL Hct 26.9 L (39.0-53.0) % Plt Count 117 L (150-450) k/uL Lymphocytes # 0.6 L (1.0-4.8) k/uL Chloride 110 H (96-109) mmol/L BUN 32.0 H (9.0-27.0) mg/dL Est GFR (CKD-EPI)AfAm 50.2 L (60.0-200.0) Est GFR (CKD-EPI)NonAf 43.3 L (60.0-200.0) BUN/Creatinine Ratio 21.33 H (12.00-20.00) Ratio Glucose 131 H (70-110) mg/dL Microbiology - Last 24 Hours (Table) 03/22/20 21:01 Blood Culture - Preliminary Blood No Growth after 120 hours Assessment and Plan Assessment: #1 nonoliguric acute kidney injury secondary to type I cardiorenal syndrome. #2 CHF with systolic dysfunction EF of 20-25% #3 acute blood loss anemia status post PRBC transfusion #4 E. coli UTI on antibiotics #5 urinary retention status post Argueta Plan: #1 continue with Aldactone and entresto. Renal functions improving. #2 hemoglobin stable. #3 at discharge start on 20 mg of torsemide oral. #4 continue midodrine for hemodynamic support. #5 nephrotoxic agents and hypotensive episodes
[2020-03-28] MEDS: FOLIC ACID 1 MG TAB PO SCH (16:11)
[2020-03-28] MEDS: THIAMINE 100 MG TAB PO SCH (16:11)
[2020-03-28] MEDS: MULTIVITAMINS, THERA 1 EACH TAB PO SCH (16:12)
[2020-03-28] MEDS: PRAVASTATIN SODIUM 20 MG TAB PO SCH (21:06)
[2020-03-28] MEDS: METOPROLOL TARTRATE 25 MG TAB PO SCH (21:06)
[2020-03-28] MEDS: allopurinoL 100 MG TAB PO SCH (21:06)
[2020-03-28] MEDS: LACTOBACILLUS ACIDOPH & BULGAR 1 EACH PACKET PO SCH (21:07)
--- NOTE | 2020-03-28 22:31 | P.PN ---
Subjective Progress Note Date: 03/28/20 Principal diagnosis: UTI,ALFREDO Mr. Lewis is a 80-year-old male with significant history of CABG status post AICD, atrial fibrillation, hypertension, hyperlipidemia transferred from [facility] secondary to weakness fatigue anemia falls and renal failure. Patient was also found to have a hemoglobin of 7.5 at the time of admission. He is currently being treated for anemia and acute kidney injury along with UTI. On 03/27/2020 -patient been seen and examined on the general medical floors. He is lying comfortably in bed appears to be in no acute distress. Patient denies having any chest pain or palpitations. No cough or difficulty in breathing denies having any fevers or chills or rigors. On reviewing the vitals patient temperature is 98.7 heart rate 67 respiratory rate 17 blood pressure 104/70 saturating at 96% on 2 L of oxygen via nasal cannula on reviewing his labs white count of 8.1, hemoglobin 9, platelets 116. Sodium 140, potassium 4.2, chloride 109, bicarb 24. BUN 42 and creatinine is 1.8. On 03/28/2019 - Patient is seen and examined on the general medical floors. Is comfortably lying in bed appears to be no acute distress. Patient states that he does not want to go to a rehab facility and wants to go home. But the patient was unable to get out of the bed by himself and ask to do so. Patient denies having any chest pain or palpitations. No cough or fever chills or rigors. On reviewing the vitals weight of 98, heart rate 78 respiratory rate 18, blood pressure 120/75 saturating at 97 on 2 L of oxygen on reviewing the labs white count of 11.1, hemoglobin 8.8, platelets 117. Sodium 140, potassium 4.3, chloride 110, bicarb 24, BUN 22, creatinine 1.5. Active Medications Acetaminophen (Acetaminophen Tab 325 Mg Tab) 650 mg PO Q6HR PRN PRN Reason: Fever and/ or Pain Last Admin: 03/28/20 04:46 Dose: 650 mg Documented by: Allopurinol (Allopurinol 100 Mg Tab) 200 mg PO HS [facility] Last Admin: 03/28/20 21:06 Dose: 200 mg Documented by: Alprazolam (Alprazolam 0.25 Mg Tab) 0.25 mg PO TID PRN PRN Reason: Anxiety Folic Acid (Folic Acid 1 Mg Tab) 1 mg PO DAILY@1200 [facility] Last Admin: 03/28/20 16:11 Dose: 1 mg Documented by: Ceftriaxone Sodium 1 gm/ (Sodium Chloride) 50 mls @ 100 mls/hr IVPB Q24HR [facility] Last Admin: 03/28/20 07:58 Dose: 100 mls/hr Documented by: Lactobacillus Acidoph/Bulgaricus (Lactobacillus Acidoph & Bulgar 1 Each Packet) 1 each PO [facility] Last Admin: 03/28/20 21:07 Dose: Not Given Documented by: Metoprolol Tartrate (Metoprolol Tartrate 25 Mg Tab) 25 mg PO HS [facility] Last Admin: 03/28/20 21:06 Dose: 25 mg Documented by: Midodrine (Midodrine 5 Mg Tab) 2.5 mg PO AC-TID [facility] Last Admin: 03/28/20 18:20 Dose: Not Given Documented by: Multivitamins (Multivitamins, Thera 1 Each Tab) 1 each PO DAILY@1200 [facility] Last Admin: 03/28/20 16:12 Dose: 1 each Documented by: Naloxone HCl (Naloxone 0.4 Mg/Ml 1 Ml Vial) 0.2 mg IV Q2M PRN PRN Reason: Opioid Reversal Pantoprazole Sodium (Pantoprazole 40 Mg/10 Ml Vial) 40 mg IV DAILY [facility] Last Admin: 03/28/20 07:59 Dose: 40 mg Documented by: Pravastatin Sodium (Pravastatin Sodium 20 Mg Tab) 10 mg PO [facility] Last Admin: 03/28/20 21:06 Dose: 10 mg Documented by: Sacubitril/Valsartan (Sacubitril/Valsartan 97 Mg-103 Mg Tablet) 0.5 each PO BID [facility] Last Admin: 03/28/20 21:06 Dose: 0.5 each Documented by: Spironolactone (Spironolactone 25 Mg Tab) 12.5 mg PO DAILY [facility] Last Admin: 03/28/20 07:59 Dose: 12.5 mg Documented by: Tamsulosin HCl (Tamsulosin 0.4 Mg Cap.Er.24h) 0.4 mg PO DAILY [facility] Last Admin: 03/28/20 08:00 Dose: 0.4 mg Documented by: Thiamine HCl (Thiamine 100 Mg Tab) 100 mg PO DAILY@1200 [facility] Last Admin: 03/28/20 16:11 Dose: 100 mg Documented by: Objective - Vital Signs Vital signs: Vital Signs Temp 98.0 F 03/28/20 07:53 Pulse 92 03/28/20 07:53 Resp 18 03/28/20 07:53 BP 125/75 03/28/20 07:53 Pulse Ox 95 03/28/20 02:00 Intake & Output 03/27/20 03/28/20 03/28/20 18:59 06:59 18:59 Intake Total 960 500 Output Total 1200 525 Balance -240 -25 Intake: Oral 960 500 Output: Urine 1200 525 Uretheral (Argueta) 1200 525 Other: Voiding Method Indwelling Catheter - Exam GENERAL: Well-developed in no acute distress. HEENT: Head is normocephalic. Pupils are equal, round. Sclerae anicteric. Mucous membranes of the mouth are moist. Neck supple. No JVD or thyromegaly LUNGS: Respirations even and unlabored. Lungs diminished. HEART: Regular rate and rhythm. S1 and S2 heard. ABDOMEN: Soft. Nondistended. Nontender. EXTREMITIES: Normal range of motion. No clubbing or cyanosis. Peripheral pulses intact. No lower extremity edema NEUROLOGIC: Awake and alert. Oriented x 2-3. Generalized weakness. - Labs CBC & Chem 7: 03/28/20 06:10 03/28/20 06:10 Labs: Abnormal Lab Results - Last 24 Hours (Table) 03/28/20 03/28/20 Range/Units 06:10 06:10 RBC 2.73 L (4.30-5.90) m/uL Hgb 8.8 L (13.0-17.5) gm/dL Hct 26.9 L (39.0-53.0) % Plt Count 117 L (150-450) k/uL Lymphocytes # 0.6 L (1.0-4.8) k/uL Chloride 110 H (96-109) mmol/L BUN 32.0 H (9.0-27.0) mg/dL Est GFR (CKD-EPI)AfAm 50.2 L (60.0-200.0) Est GFR (CKD-EPI)NonAf 43.3 L (60.0-200.0) BUN/Creatinine Ratio 21.33 H (12.00-20.00) Ratio Glucose 131 H (70-110) mg/dL Microbiology - Last 24 Hours (Table) 03/22/20 21:01 Blood Culture - Preliminary Blood No Growth after 120 hours Assessment and Plan Assessment: ASSESSMENT Acute on chronic anemia-secondary to blood loss etiology undetermined Acute kidney injury with prerenal factors, possible dehydration Acute UTI with E. coli present on admission Leukocytosis Thrombocytopenia GERD History of GI bleed and polypectomy in the past Hypertension Hyperlipidemia History of C. difficile colitis History of coronary artery disease status post CABG and stenting History of pacemaker Obesity with BMI of 36.9 PLAN: Patient's urine culture is positive for E. coli so we will continue with ceftriaxone. Nephrology on board, following his creatinine levels as he is recovering from acute kidney injury. As the patient has anemia, GI Dr. Lovelace on board, no plan of acute intervention currently. Holding off Xarelto for now due to acute anemia. Continue with the rest of his current medication regimen. Patient states that he does not want to go to a rehab facility and wants to go home. But the patient was unable to get out of the bed by himself and ask to do so. PT/OT for assesment of physical capacity to go home all by himself. Overall prognosis is guarded. Further recommendations depending on the progress of the patient.
[2020-03-28] MEDS: ENOXAPARIN 40 MG/0.4 ML SYRINGE SQ SCH (23:54)
[2020-03-29 07:44] VITALS: RESP 16
[2020-03-29] MEDS: MULTIVITAMINS, THERA 1 EACH TAB PO SCH (08:10)
[2020-03-29] MEDS: THIAMINE 100 MG TAB PO SCH (08:10)
[2020-03-29] MEDS: SPIRONOLACTONE 25 MG TAB PO SCH (08:11)
[2020-03-29] MEDS: TAMSULOSIN 0.4 MG CAP.ER.24H PO SCH (08:11)
[2020-03-29] MEDS: SACUBITRIL/VALSARTAN 97 MG-103 MG TABLET PO SCH (08:11)
[2020-03-29] MEDS: MIDODRINE 5 MG TAB PO SCH ×2 (08:11→11:21)
[2020-03-29] MEDS: FOLIC ACID 1 MG TAB PO SCH (08:11)
[2020-03-29] MEDS: PANTOPRAZOLE 40 MG/10 ML VIAL IV SCH (08:11)
[2020-03-29] MEDS: ENOXAPARIN 40 MG/0.4 ML SYRINGE SQ SCH (08:12)
--- NOTE | 2020-03-29 12:53 | PN ---
PROGRESS NOTE DATE OF PROGRESS NOTE: March 28, 2020 The patient is an 80-year-old pleasant white male admitted to hospital with severe anemia requiring 2 units of PRBC transfusion. He was subsequently diagnosed with urinary tract infection and was started on broad-spectrum antibiotics. Overall he is feeling better. He denies any new symptoms today. His shortness of breath has improved. His hemoglobin remains stable. He had 2 bowel movements yesterday, no bleeding. PHYSICAL EXAMINATION: On physical examination, appears comfortable, no apparent distress. Vital signs are stable. Blood pressure is 149/88, pulse rate 76, and afebrile. HEENT EXAMINATION: Unremarkable. Conjunctivae pink. Sclerae anicteric. Oral cavity no lesions. NECK: No JVD or lymph node enlargement. CHEST: Clear auscultation. HEART: Regular rate and rhythm. ABDOMEN: Soft. It was slightly obese, but it was nontender. EXTREMITIES: No pedal edema. NEUROLOGIC: Alert and oriented x3. No focal deficits. LABS: From today, hemoglobin is 8.9. IMPRESSION: 1. Recurrent anemia secondary to occult gastrointestinal blood loss plus obscure gastrointestinal bleed. The patient is status post EGD, colonoscopy in October of 2019 that showed small polyps. During this hospitalization he did have a small bowel capsule endoscopy done, but unfortunately it was inconclusive, as the capsule remained in the stomach for the entire study. In the meantime, Xarelto has been on hold and patient is doing better. Hemoglobin is stable. 2. Atrial fibrillation on Xarelto, currently on hold. 3. Urinary tract infection, on broad-spectrum antibiotics. RECOMMENDATION: 1. Continue current management. 2. Monitor CBC daily. 3. If patient is going home he can follow up in our office in 2 weeks. Thank you for this consultation. MMODL / IJN: [id number] /
[2020-03-29 13:27] VITALS: BMI 36.8
--- NOTE | 2020-03-29 14:32 | P.DS ---
Providers Date of admission: 03/22/20 16:15 Expected date of discharge: 03/29/20 Attending physician: Jose Antonio Duenas Consults: 03/22/20 16:15 Consult Physician Urgent Consulting Provider: Blue Soriano Consult Reason/Comments: renal insufficency Do you want consulting provider notified?: Yes [facility] care physician[facility] Course: Final diagnosis Acute on chronic anemia-secondary to blood loss etiology undetermined Acute kidney injury with prerenal factors, possible dehydration Acute UTI with E. coli present on admission Leukocytosis Thrombocytopenia GERD History of GI bleed and polypectomy in the past Hypertension Hyperlipidemia History of C. difficile colitis History of coronary artery disease status post CABG and stenting History of pacemaker Obesity with BMI of 36.9 Discharge disposition Patient is being discharged in a stable condition with guarded prognosis to home. Patient will follow-up with Dr. Vargas in the outpatient setting upon discharge. Patient will continue with visiting nurses home care in the outpatient setting. Patient instructed to follow-up with GI Dr. Lovelace in 2 weeks. Patient instructed to continue holding Xarelto until follow-up with his vba developer and primary care provider upon discharge. Total time taken is greater than 35 minutes. Hospital course This is a 80-year-old male who was recently admitted with weakness and fatigue, anemia, frequent falls, and acute renal failure and was being closely monitored. Patient was transferred from [facility] here for further evalu ation. Patient was on Xarelto and currently on hold per GI and patient is to follow-up with his vba developer along with primary care provider to discuss resuming. Hemoglobin is stable at 8.8 with no active bleeding noted. Patient instructed to follow-up with primary care provider upon discharge for close monitoring and repeat labs. Patient was being treated for urinary tract infection with IV ceftriaxone and has completed the course. Patient was seen and evaluated by physical therapy and slowly showed improvement but continues to be weak with the possibility of subacute rehab for some strength and mobility although patient is refusing. Patient will continue with home care and family would like him to return home as well. Patient does have a walker in the home. Currently no reports of chest pain, shortness of breath, or palpitations. Patient is afebrile. No reports of nausea or vomiting and patient is tolerating diet. Patient will be discharged home today. Prognosis is guarded. On exam vital signs are stable. Temp is 97.7F, pulse is 60, respirations are 16, blood pressure is 110/69, oxygen saturation is 95% on 2 L via nasal cannula. Cardio S1, S2 are muffled. Respiratory system shows diminished breath sounds at the bases with no wheezing or rhonchi noted. Abdomen is soft and nontender. Nervous system shows diffuse weakness. Please refer to medication reconciliation sheet for a list of medications. Patient Condition at Discharge: Stable Plan - Discharge Summary Discharge Rx Participant: No New Discharge Prescriptions: New Folic Acid 1 mg PO DAILY@1200 30 Days #30 tab Multivitamins, Thera [Multivitamin (formulary)] 1 each PO DAILY@1200 30 Days #30 tab Midodrine [ProAmatine] 2.5 mg PO AC-TID #60 tab Acetaminophen Tab [Tylenol] 650 mg PO Q6HR PRN tab PRN Reason: Fever And/ Or Pain Thiamine [Vitamin B-1] 100 mg PO DAILY@1200 30 Days #30 tab Continue Allopurinol [Zyloprim] 300 mg PO HS Pravastatin Sodium [Pravachol] 10 mg PO HS Metoprolol Tartrate 25 mg PO HS Ferrous Sulfate [Iron (65 MG Elemental)] 325 mg PO MOTUWETHFR Spironolactone 12.5 mg PO DAILY Pantoprazole Sodium 40 mg PO DAILY Torsemide [Demadex] 20 mg PO DAILY Tamsulosin [Flomax] 0.4 mg PO DAILY Sacubitril/Valsartan [Entresto 97 mg-103 mg Tablet] 0.5 tab PO BID Lactobacillus Acidophilus [Acidophilus] 1 tab PO HS Discontinued Rivaroxaban [Xarelto] 15 mg PO HS Discharge Medication List Allopurinol [Zyloprim] 300 mg PO HS 03/22/20 [History] Ferrous Sulfate [Iron (65 MG Elemental)] 325 mg PO MOTUWETHFR 03/22/20 [History] Lactobacillus Acidophilus [Acidophilus] 1 tab PO HS 03/22/20 [History] Metoprolol Tartrate 25 mg PO HS 03/22/20 [History] Pantoprazole Sodium 40 mg PO DAILY 03/22/20 [History] Pravastatin Sodium [Pravachol] 10 mg PO HS 03/22/20 [History] Sacubitril/Valsartan [Entresto 97 mg-103 mg Tablet] 0.5 tab PO BID 03/22/20 [History] Spironolactone 12.5 mg PO DAILY 03/22/20 [History] Tamsulosin [Flomax] 0.4 mg PO DAILY 03/22/20 [History] Torsemide [Demadex] 20 mg PO DAILY 03/22/20 [History] Acetaminophen Tab [Tylenol] 650 mg PO Q6HR PRN tab 03/29/20 [Rx] Folic Acid 1 mg PO DAILY@1200 30 Days #30 tab 03/29/20 [Rx] Midodrine [ProAmatine] 2.5 mg PO AC-TID #60 tab 03/29/20 [Rx] Multivitamins, Thera [Multivitamin (formulary)] 1 each PO DAILY@1200 30 Days #30 tab 03/29/20 [Rx] Thiamine [Vitamin B-1] 100 mg PO DAILY@1200 30 Days #30 tab 03/29/20 [Rx] Follow up Appointment(s)/Referral(s): Nikki Lovelace MD [STAFF PHYSICIAN] - 2 Weeks Mello Vargas MD [Primary Care Provider] - 1-2 days [facility], [NON-STAFF] - 1-2 Days Patient Instructions/Handouts: Iron Deficiency Anemia (DC) Activity/Diet/Wound Care/Special Instructions: Activity Limited until follow-up Follow-up with primary care provider upon discharge Follow-up with cardiology and discuss Xarelto and when to resume Continue current diet Discharge Disposition: HOME WITH HOME HEALTH SERVICES
[2020-03-29 14:34] VITALS: BP 120/59; PULSE 62; TEMP 97.9
--- NOTE | 2020-03-29 14:50 | PN ---
PROGRESS NOTE Patient is seen for followup for acute kidney injury. The patient's renal function has improved. His creatinine is decreased to 1.5. He is scheduled for possible discharge today. Hemoglobin was 8.8 g/dL today. PHYSICAL EXAMINATION: On examination, patient is comfortable. Blood pressure was 110/69, heart rate 60 per minute. He is afebrile. EXAMINATION OF THE HEART: S1, S2. EXAMINATION OF LUNGS: Decreased breath sounds at bases. Abdomen is soft, nontender. Examination of lower extremities shows edema 1+ bilaterally. MANAGER PE exam grossly intact. LABS: Labs show sodium 140, potassium 4.3, chloride 110, CO2 is 24, BUN 32, creatinine 1.5, hemoglobin 8.8 g/dL. ASSESSMENT: 1. Acute kidney injury secondary to anemia as well as cardiorenal syndrome. 2. Congestive heart failure with systolic dysfunction, ejection fraction 20% to 25%. 3. Acute blood loss anemia with positive stool for occult blood, status post packed RBCs transfusion. 4. Iron deficiency, status post IV iron. 5. Escherichia coli urinary tract infection, maintained on antibiotics. 6. Urine retention currently with indwelling Argueta catheter. PLAN: Monitor hemoglobin as outpatient. We will see the patient back for followup in about 1 months' time for possible underlying CKD. Monitor hemoglobin and iron profile as outpatient. MMODL / IJN: [id number] /
== END 2020-03-29 17:31 | disposition home health service (06) | DRG 811 ==
LOC: EC 15:15 → 4SSUR 16:15 → 5NMEDONC 03-23 11:44
PROVIDERS: ADMIT Hospitalist; ATTEND Hospitalist
PROC: 30233N1 Transfusion of Nonautologous Red Blood Cells into Peripheral Vein, Percutaneous Approach (ICD-10-PCS; principal; 2020-03-22)
DX: D62 Acute posthemorrhagic anemia (principal); N17.0 Acute kidney failure with tubular necrosis; E87.2 Acidosis; I13.0 Hypertensive heart and chronic kidney disease with heart failure and stage 1 through stage 4 chronic kidney disease, or unspecified chronic kidney disease; I48.19 Other persistent atrial fibrillation; I50.22 Chronic systolic (congestive) heart failure; N39.0 Urinary tract infection, site not specified; B96.20 Unspecified Escherichia coli [E. coli] as the cause of diseases classified elsewhere; E66.9 Obesity, unspecified; D69.6 Thrombocytopenia, unspecified; E78.5 Hyperlipidemia, unspecified; E86.0 Dehydration; E86.1 Hypovolemia; F41.9 Anxiety disorder, unspecified; I25.10 Atherosclerotic heart disease of native coronary artery without angina pectoris; I25.5 Ischemic cardiomyopathy; J44.9 Chronic obstructive pulmonary disease, unspecified; K63.5 Polyp of colon; N18.9 Chronic kidney disease, unspecified; K21.9 Gastro-esophageal reflux disease without esophagitis; Z68.36 Body mass index [BMI] 36.0-36.9, adult; Z79.899 Other long term (current) drug therapy; Z79.01 Long term (current) use of anticoagulants; Z80.0 Family history of malignant neoplasm of digestive organs; Z87.19 Personal history of other diseases of the digestive system; Z86.19 Personal history of other infectious and parasitic diseases; Z95.1 Presence of aortocoronary bypass graft; Z95.810 Presence of automatic (implantable) cardiac defibrillator; Z95.5 Presence of coronary angioplasty implant and graft; Z88.8 Allergy status to other drugs, medicaments and biological substances
CPT/HCPCS: 51702; 51798; 71045; 71046; 76770; 80048; 80053; 81001; 82272; 82607; 82728; 82746; 83540; 83550; 83735; 83880; 84132; 84484; 85025; 85027; 85045; 87040; 87077; 87086; 87186; 91110; 93005; 93306; 96360; 96361; 99285

== ENCOUNTER 2020-05-25 18:26 | Inpatient (IN) | payer MEDICARE, BC ==
[2020-05-25] MEDS ORDERED: NALOXONE 0.4 MG/ML 1 ML VIAL IV PRN (19:04)
--- NOTE | 2020-05-25 19:04 | ED ---
General Adult HPI - General Chief complaint: Abdominal Pain Stated complaint: abd pain Time Seen by Provider: 05/25/20 18:27 Source: patient, RN/MD, EMS, RN notes reviewed, old records reviewed Mode of arrival: EMS Limitations: no limitations - History of Present Illness Initial comments: Patient is a pleasant 80-year-old male presenting to the emergency department as a transfer from [facility]. Patient was transferred secondary to abdominal complaints with recent diagnosis of pancreatic cancer. Patient was transferred for oncology evaluation and potentially palliative care. Patient states he has known chronic headache cancer and has seen Dr. Marrero. Patient is not interested in therapy secondary to having to go to [place] for surgical biopsy prior to considering there.. Patient has felt constipated and did not have a bowel movement for approximately for 5 days however did have a bowel movement at [facility]. Patient only has mild abdominal discomfort and fullness at this time. Patient reportedly had elevation of his lipase and renal function. - Related Data Home Medications Medication Instructions Recorded Confirmed Allopurinol [Zyloprim] 300 mg PO HS 03/22/20 03/22/20 Ferrous Sulfate [Iron (65 MG 325 mg PO MOTUWETHFR 03/22/20 03/22/20 Elemental)] Lactobacillus Acidophilus 1 tab PO HS 03/22/20 03/22/20 [Acidophilus] Metoprolol Tartrate 25 mg PO HS 03/22/20 03/22/20 Pantoprazole Sodium 40 mg PO DAILY 03/22/20 03/22/20 Pravastatin Sodium [Pravachol] 10 mg PO HS 03/22/20 03/22/20 Sacubitril/Valsartan [Entresto 97 0.5 tab PO BID 03/22/20 03/22/20 mg-103 mg Tablet] Spironolactone 12.5 mg PO DAILY 03/22/20 03/22/20 Tamsulosin [Flomax] 0.4 mg PO DAILY 03/22/20 03/22/20 Torsemide [Demadex] 20 mg PO DAILY 03/22/20 03/22/20 Previous Rx's Medication Instructions Recorded Acetaminophen Tab [Tylenol] 650 mg PO Q6HR PRN tab 03/29/20 Folic Acid 1 mg PO DAILY@1200 30 Days #30 tab 03/29/20 Midodrine [ProAmatine] 2.5 mg PO AC-TID #60 tab 03/29/20 Multivitamins, Thera [Multivitamin 1 each PO DAILY@1200 30 Days #30 03/29/20 (formulary)] tab Thiamine [Vitamin B-1] 100 mg PO DAILY@1200 30 Days #30 03/29/20 tab Allergies Allergy/AdvReac Type Severity Reaction Status Date / Time metronidazole [From Flagyl] Allergy Unknown Verified 03/22/20 17:25 Review of Systems ROS Statement: Those systems with pertinent positive or pertinent negative responses have been documented in the HPI. ROS Other: All systems not noted in ROS Statement are negative. Constitutional: Denies: fever Eyes: Denies: eye pain ENT: Denies: ear pain Respiratory: Denies: cough Cardiovascular: Denies: chest pain Endocrine: Denies: fatigue Gastrointestinal: Reports: as per HPI, constipation Genitourinary: Denies: dysuria Musculoskeletal: Denies: back pain Skin: Denies: rash Neurological: Denies: weakness Past Medical History Past Medical History: Cancer, Heart Failure, COPD, Hypertension, Renal Disease Additional Past Medical History / Comment(s): pancreatic CA History of Any Multi-Drug Resistant Organisms: C-DIFF Date of last positivie culture/infection: 2012 MDRO Source:: stool Past Surgical History: Coronary Bypass/CABG, Heart Catheterization With Stent, Orthopedic Surgery, Pacemaker Additional Past Surgical History / Comment(s): pacer Past Anesthesia/Blood Transfusion Reactions: No Reported Reaction Date of Last Stent Placement:: 2012 Type of Cardiac Device: Permanent Pacemaker Device Placement Date:: 2015 Past Psychological History: No Psychological Hx Reported Smoking Status: Never smoker Past Alcohol Use History: Occasional Past Drug Use History: None Reported - Past Family History Daughter(s) Family Medical History: Cancer Additional Family Medical History / Comment(s): Colon cancer General Exam Limitations: no limitations General appearance: alert, in no apparent distress Head exam: Present: normocephalic Eye exam: Present: normal appearance Neck exam: Present: normal inspection Respiratory exam: Present: normal lung sounds bilaterally Cardiovascular Exam: Present: regular rate, normal rhythm GI/Abdominal exam: Present: soft, normal bowel sounds. Absent: distended, tenderness Extremities exam: Present: normal inspection Neurological exam: Present: alert Psychiatric exam: Present: normal affect, normal mood Skin exam: Present: normal color Course Vital Signs 05/25/20 18:28 Pulse Rate 77 Respiratory 16 Rate Blood Pressure 119/85 O2 Sat by Pulse 95 Oximetry Medical Decision Making - Medical Decision Making Patient updated on plan. Dr. Duenas has been paged for admission covering for Dr. Lindsay. Disposition Clinical Impression: Renal insufficiency, Pancreatitis, Pancreatic cancer Disposition: ADMITTED IP TO THIS HOSP Is patient prescribed a controlled substance at d/c from ED?: No Referrals: Mello Vargas MD [Primary Care Provider] - 1-2 days Decision Time: 19:04
[2020-05-25] MEDS: SODIUM CHLORIDE 0.9% 1,000 ML IV SCH (20:03)
[2020-05-25] MEDS: PANTOPRAZOLE 40 MG/10 ML VIAL IV SCH (20:03)
[2020-05-25] MEDS: HYDROmorphone 0.5 MG/0.5 ML SYRINGE IVP PRN (23:09)
[2020-05-26 09:06] LABS: ALT 10 U/L (4-49); AST 21 U/L (17-59); African American GFR (CKD) 30 (>60 ml/min/1.73 sqM); Albumin 3.6 g/dL (3.5-5.0); Albumin/Globulin Ratio 1.2; Alkaline Phosphatase 89 U/L (38-126); Anion Gap 11 mmol/L; Blood Urea Nitrogen 37 mg/dL (9-20); Calcium 9.8 mg/dL (8.4-10.2); Carbon Dioxide 21 mmol/L (22-30); Chloride 104 mmol/L (98-107); Glucose 94 mg/dL (74-99); Non-African American GFR(CKD) 26 (>60 ml/min/1.73 sqM); Potassium 3.9 mmol/L (3.5-5.1); Sodium 136 mmol/L (137-145); Total Bilirubin 0.7 mg/dL (0.2-1.3); Total Protein 6.6 g/dL (6.3-8.2)
[2020-05-26] MEDS ORDERED: PANTOPRAZOLE 40 MG TABLET PO SCH (09:30)
[2020-05-26 09:55] LABS: Anisocytosis Slight; Basophils # (A) 0.1 k/uL (0-0.2); Basophils % (A) 1 %; Eosinophils # (A) 0.3 k/uL (0-0.7); Eosinophils % (A) 6 %; HCT 31.7 % (39.0-53.0); HGB 10.4 gm/dL (13.0-17.5); Lymphocytes # (A) 0.4 k/uL (1.0-4.8); Lymphocytes % (A) 9 %; MCH 31.9 pg (25.0-35.0); MCHC 32.7 g/dL (31.0-37.0); MCV 97.7 fL (80.0-100.0); Macrocytosis Slight; Mean Platelet Volume 8.9; Monocytes # (A) 0.4 k/uL (0-1.0); Monocytes % (A) 9 %; Neutrophils # (A) 3.6 k/uL (1.3-7.7); Neutrophils % (A) 74 %; RBC 3.24 m/uL (4.30-5.90); RDW 16.4 % (11.5-15.5); WBC 4.9 k/uL (3.8-10.6)
[2020-05-26] MEDS: FINASTERIDE 5 MG TAB PO SCH (10:02)
[2020-05-26] MEDS: PANTOPRAZOLE 40 MG/10 ML VIAL IV SCH (10:02)
[2020-05-26] MEDS: SODIUM CHLORIDE 0.9% 1,000 ML IV SCH (10:02)
[2020-05-26] MEDS: HYDROmorphone 0.5 MG/0.5 ML SYRINGE IVP PRN (10:12)
--- NOTE | 2020-05-26 10:31 | P.CONS ---
History of Present Illness - Reason for Consult Consult date: 05/26/20 probable malignancy Requesting physician: Ramirez Mcknight - Chief Complaint abd pain - History of Present Illness Mr. Lewis is a very pleasant 80 year old man we have been asked to see because he has CT imaging from 05/25 that is highly suggestive of malignancy. He has associated symptoms of unintentional 45lb wt loss over last 3-5 months, progressive weakness, loss of appetite, upper abd pain, changes in bowel habits- constipation, but, had diarrhea very bad yesterday. He denies fever, night sweats, nausea or vomiting, has had indigestion/GERD but nothing worse. He sta rted having bowel [id number], he was found to be anemic at that time as well. Colonoscopy with , polyps removed, capsule did not pass through small intestine. His abd pain is fairly well controlled, he is feeling he is failing fast and he is very weak. He went to [facility] yesterday with c/o abd pain, CT AP showing diminished attenuation in pancreatic body similar CT done 06/04/20. There is retroperitoneal adenopathy. Review of Systems 14 point ROS is as stated in HPI Past Medical History Past Medical History: Atrial Fibrillation, Cancer, Heart Failure, COPD, Deep Vein Thrombosis (DVT), Hypertension, Renal Disease Additional Past Medical History / Comment(s): pancreatic CA History of Any Multi-Drug Resistant Organisms: C-DIFF Year Discovered:: 2012 MDRO Source:: stool Past Surgical History: Coronary Bypass/CABG, Heart Catheterization With Stent, Orthopedic Surgery, Pacemaker Additional Past Surgical History / Comment(s): pacer Past Anesthesia/Blood Transfusion Reactions: No Reported Reaction Date of Last Stent Placement:: 2012 Type of Cardiac Device: AICD Device Placement Date:: 2015 Past Psychological History: No Psychological Hx Reported Smoking Status: Former smoker Past Alcohol Use History: Occasional Additional Past Alcohol Use History / Comment(s): pt states he smoked for about 50 years and he quit in 2012 Past Drug Use History: None Reported - Past Family History Daughter(s) Family Medical History: Cancer Additional Family Medical History / Comment(s): Colon cancer Medications and Allergies Home Medications Medication Instructions Recorded Confirmed Type Allopurinol [Zyloprim] 300 mg PO HS 03/22/20 05/25/20 History Ferrous Sulfate [Iron (65 MG 325 mg PO MOTUWETHFR@199903/22/20 05/25/20 History Elemental)] Lactobacillus Acidophilus 1 tab PO HS 03/22/20 05/25/20 History [Acidophilus] Metoprolol Tartrate 25 mg PO HS 03/22/20 05/25/20 History Pantoprazole Sodium 40 mg PO DAILY 03/22/20 05/25/20 History Pravastatin Sodium [Pravachol] 10 mg PO HS 03/22/20 05/25/20 History Sacubitril/Valsartan [Entresto 97 0.5 tab PO BID 03/22/20 05/25/20 History mg-103 mg Tablet] Spironolactone 12.5 mg PO DAILY 03/22/20 05/25/20 History Tamsulosin [Flomax] 0.4 mg PO DAILY 03/22/20 05/25/20 History Torsemide [Demadex] 20 mg PO DAILY 03/22/20 05/25/20 History Finasteride [Proscar] 5 mg PO DAILY 05/25/20 05/25/20 History Allergies Allergy/AdvReac Type Severity Reaction Status Date / Time metronidazole [From Flagyl] Allergy Unknown Verified 05/25/20 21:39 Physical Exam Vitals: Vital Signs Temp Pulse Pulse Resp BP BP Pulse Ox 05/26/20 08:00 97.4 F L 60 16 100/64 94 L 05/26/20 00:47 16 05/26/20 00:05 97.4 F L 56 L 20 104/60 94 L 05/25/20 18:28 77 16 119/85 95 Intake and Output 05/25/20 05/26/20 05/26/20 22:59 06:59 14:59 Output Total 550 Balance -550 Output: Urine 550 Other: Voiding Method Indwelling Catheter Weight 110.223 kg 112.5 kg - Constitutional General appearance: cooperative, no acute distress, obese - EENT Eyes: anicteric sclerae, EOMI ENT: hearing grossly normal, normal oropharynx - Neck Neck: no lymphadenopathy - Respiratory Respiratory: bilateral: CTA - Cardiovascular possible S3 heart sound, lt chest wall pacemaker Heart sounds: normal: S1, S2 leg Peripheral Edema: bilateral: None - Gastrointestinal General gastrointestinal: no absent bowel sounds, no decreased bowel sounds, no distended, no hepatomegaly, no hyperactive bowel sounds, normal bowel sounds, no organomegaly, no rigid, no scaphoid, soft, no splenomegaly, no tenderness, no umbilical hernia, no ventral hernia - Integumentary Integumentary: normal, pale - Neurologic Neurologic: CNII-XII intact - Musculoskeletal Musculoskeletal: generalized weakness, strength equal bilaterally - Psychiatric Psychiatric: A&O x's 3, appropriate affect, intact judgment & insight Results CBC & Chem 7: 05/26/20 09:28 05/26/20 07:10 Labs: Abnormal Lab Results - Last 24 Hours (Table) 05/26/20 05/26/20 Range/Units 07:10 09:28 RBC 3.24 L (4.30-5.90) m/uL Hgb 10.4 L (13.0-17.5) gm/dL Hct 31.7 L (39.0-53.0) % RDW 16.4 H (11.5-15.5) % Sodium 136 L (137-145) mmol/L Carbon Dioxide 21 L (22-30) mmol/L BUN 37 H (9-20) mg/dL Creatinine 2.31 H (0.66-1.25) mg/dL CT scan - abdomen: report reviewed CT scan - pelvis: report reviewed Assessment and Plan (1) Pancreatic mass Current Visit: Yes Status: Acute Priority: High Code(s): K86.89 - OTHER SPECIFIED DISEASES OF PANCREAS SNOMED Code(s): 949782211 (2) Adenopathy Current Visit: Yes Status: Acute Priority: High Code(s): R59.9 - ENLARGED LYMPH NODES, UNSPECIFIED SNOMED Code(s): 00516646 (3) Anemia Current Visit: Yes Status: Acute Priority: Medium Code(s): D64.9 - ANEMIA, UNSPECIFIED SNOMED Code(s): 768595317 (4) Chronic kidney disease Current Visit: Yes Status: Chronic Priority: Medium Code(s): N18.9 - CHRONIC KIDNEY DISEASE, UNSPECIFIED SNOMED Code(s): 224829070 (5) General weakness Current Visit: Yes Status: Acute Priority: High Code(s): R53.1 - WEAKNESS SNOMED Code(s): 76197578 Plan: It was discussed with pt that a formal diagnosis of cancer cannot be documented without pathological confirmation. It can be stated with high suspicion that pt has a malignant process occurring based on presentation and history. Primary cannot be known therefore prognosis and treatment options cannot be discussed. Pt verbalized understanding. Pt states he does not want biopsy-he "can't keep up with all the Doctor appts". He states that he watched his have chemo and does not want to do any chemo. He states he is 80 years old, has a bad heart and kidneys as well. When it was discussed keeping him comfortable and not pursuing any biopsies or treatment he was in agreement with that plan. It was recommended to pt that he have palliative care services to keep him out of the hospital and comfortable. Palliative care will help pt with symptoms, he can continue his medications for chronic illnesses and transition to hospice as his condition warrants. Consult put in for info session. attests:I haver performed H&P an developed impression and plan of care for pt, discussed with dictator. I agree with dictated note, documented as a scribe
[2020-05-26 10:37] LABS: Platelet Count 99 k/uL (150-450); Poikilocytosis (M) Present
[2020-05-26] MEDS ORDERED: ACETAMINOPHEN TAB 325 MG TAB PO PRN (10:52)
--- NOTE | 2020-05-26 11:29 | XR ---
EXAMINATION TYPE: XR chest 2V DATE OF EXAM: 05/26/2020 COMPARISON: Chest x-ray 03/25/2020 HISTORY: Congestive heart failure TECHNIQUE: Frontal and lateral views of the chest are obtained. FINDINGS: There is no focal air space opacity, pleural effusion, or pneumothorax seen. The cardiac silhouette size is stable and enlarged, heart may be accentuated appearance due to rotation. Central vascularity and interstitium appears somewhat prominently. Patient is post median sternotomy. There a re leads in the right atrium, ventricle, coronary sinus, generator in left pectoral region. Prominen t lung volumes suggest underlying COPD. The osseous structures are intact. IMPRESSION: Correlate for possible pulmonary venous hypertension and early incisional edema. Follow- up as indicated.
[2020-05-26] MEDS ORDERED: traMADol 50 MG TAB PO PRN (12:00)
[2020-05-26] MEDS ORDERED: traMADol 50 MG TAB PO SCH (13:00)
[2020-05-26 13:35] LABS: Anion Gap 11.2 mmol/L (4.00-12.00); BUN/Creat Ratio 16.52 Ratio (12.00-20.00); Calcium 9.4 mg/dL (8.7-10.3); Carbon Dioxide 19.8 mmol/L (21.6-31.8); Non-African American GFR(CKD) 25.9 (60.0-200.0); Potassium 3.9 mmol/L (3.5-5.5)
--- NOTE | 2020-05-26 15:10 | P.HPIM ---
History of Present Illness Patient is 80-year-old pleasant male was sent in from his [facility] with concerns of pancreatic cancer patient has a retroperitoneal lymphadenopathy concerning for pancreatic cancer patient is sent in here for further evaluation for the and gastro-oncology was consulted. He is also found to have a poor renal function patient creatinine is 2.31 although his baseline appears to be around 1.5. Patient was given IV fluids were discontinued patient has history of congestive heart failure with EF of around the 20%. Patient is also on entresto which is being held patient is on Demadex which will be resumed nephrology will be consulted. Patient wasn't creatinine is around 2.31. Patient was complaining of abdominal pain and constipation yesterday which resolved at this time patient's abdominal pain is present predominantly in the mid and lower abdomen bilaterally and crampy moderate abdominal pain which actua lly resolved at this time. Oncology was consulted as well. Chest x-ray is said concerning for pulmonary edema and I ordered a BNP which came back at 6600 although clinically patient doesn't have any pedal edema and JVD at this time Review of Systems REVIEW OF SYSTEMS: CONSTITUTIONAL: No fever, no malaise, no fatigue. HEENT: No recent visual problems or hearing problems. Denied any sore throat. CARDIOVASCULAR: No chest pain, orthopnea, PND, no palpitations, no syncope. PULMONARY: No shortness of breath, no cough, no hemoptysis. GASTROINTESTINAL: No diarrhea, no nausea, no vomiting, no abdominal pain. NEUROLOGICAL: No headaches, no weakness, no numbness. HEMATOLOGICAL: Denies any bleeding or petechiae. GENITOURINARY: Denies any burning micturition, frequency, or urgency. MUSCULOSKELETAL/RHEUMATOLOGICAL: Denies any joint pain, swelling, or any muscle pain. ENDOCRINE: Denies any polyuria or polydipsia. The rest of the 14-point review of systems is negative. Past Medical History Past Medical History: Atrial Fibrillation, Cancer, Heart Failure, COPD, Deep Vein Thrombosis (DVT), Hypertension, Renal Disease Additional Past Medical History / Comment(s): pancreatic CA History of Any Multi-Drug Resistant Organisms: C-DIFF Date of last positivie culture/infection: 2012 MDRO Source:: stool Past Surgical History: Coronary Bypass/CABG, Heart Catheterization With Stent, Orthopedic Surgery, Pacemaker Additional Past Surgical History / Comment(s): pacer Past Anesthesia/Blood Transfusion Reactions: No Reported Reaction Date of Last Stent Placement:: 2012 Type of Cardiac Device: AICD Device Placement Date:: 2015 Past Psychological History: No Psychological Hx Reported Smoking Status: Former smoker Past Alcohol Use History: Occasional Additional Past Alcohol Use History / Comment(s): pt states he smoked for about 50 years and he quit in 2012 Past Drug Use History: None Reported - Past Family History Daughter(s) Family Medical History: Cancer Additional Family Medical History / Comment(s): Colon cancer Medications and Allergies Home Medications Medication Instructions Recorded Confirmed Type Allopurinol [Zyloprim] 300 mg PO HS 03/22/20 05/25/20 History Ferrous Sulfate [Iron (65 MG 325 mg PO MOTUWETHFR@2000 03/22/20 05/25/20 History Elemental)] Lactobacillus Acidophilus 1 tab PO HS 03/22/20 05/25/20 History [Acidophilus] Metoprolol Tartrate 25 mg PO HS 03/22/20 05/25/20 History Pantoprazole Sodium 40 mg PO DAILY 03/22/20 05/25/20 History Pravastatin Sodium [Pravachol] 10 mg PO HS 03/22/20 05/25/20 History Sacubitril/Valsartan [Entresto 97 0.5 tab PO BID 03/22/20 05/25/20 History mg-103 mg Tablet] Spironolactone 12.5 mg PO DAILY 03/22/20 05/25/20 History Tamsulosin [Flomax] 0.4 mg PO DAILY 03/22/20 05/25/20 History Torsemide [Demadex] 20 mg PO DAILY 03/22/20 05/25/20 History Finasteride [Proscar] 5 mg PO DAILY 05/25/20 05/25/20 History Allergies Allergy/AdvReac Type Severity Reaction Status Date / Time metronidazole [From Flagyl] Allergy Unknown Verified 05/25/20 21:39 Physical Exam Vitals: Vital Signs Temp Pulse Pulse Resp BP BP Pulse Ox 05/26/20 08:00 97.4 F L 60 16 100/64 94 L 05/26/20 00:47 16 05/26/20 00:05 97.4 F L 56 L 20 104/60 94 L 05/25/20 18:28 77 16 119/85 95 Intake and Output 05/25/20 05/26/2021 22:59 06:59 14:59 Output Total 550 Balance -550 Output: Urine 550 Other: Voiding Method Indwelling Catheter Indwelling Catheter Weight 110.223 kg 112.5 kg PHYSICAL EXAMINATION: GENERAL: The patient is alert and oriented x3, not in any acute distress. Obese HEENT: Pupils are round and equally reacting to light. EOMI. No scleral icterus. No conjunctival pallor. Normocephalic, atraumatic. No pharyngeal erythema. No thyromegaly. CARDIOVASCULAR: S1 and S2 present. No murmurs, rubs, or gallops. PULMONARY: Chest is clear to auscultation, no wheezing or crackles. ABDOMEN: Soft, nontender, nondistended, normoactive bowel sounds. No palpable organomegaly. MUSCULOSKELETAL: No joint swelling or deformity. EXTREMITIES: No cyanosis, clubbing, or pedal edema. NEUROLOGICAL: Gross neurological examination did not reveal any focal deficits. SKIN: No rashes. Results CBC & Chem 7: 05/26/20 09:28 05/26/20 07:10 Labs: Abnormal Lab Results - Last 24 Hours (Table) 05/26/20 05/26/20 05/26/20 Range/Units 07:10 07:10 09:28 RBC 3.24 L (4.30-5.90) m/uL Hgb 10.4 L (13.0-17.5) gm/dL Hct 31.7 L (39.0-53.0) % RDW 16.4 H (11.5-15.5) % Plt Count 99 L (150-450) k/uL Lymphocytes # 0.4 L (1.0-4.8) k/uL Sodium 136 L (137-145) mmol/L Carbon Dioxide 19.8 L 21 L (21.6-31.8) mmol/L BUN 38.0 H 37 H (9.0-27.0) mg/dL Creatinine 2.3 H 2.31 H (0.6-1.5) mg/dL Est GFR (CKD-EPI)AfAm 30.0 L (60.0-200.0) Est GFR (CKD-EPI)NonAf 25.9 L (60.0-200.0) Lipase 193 H (14-60) U/L Thrombosis Risk Factor Assmnt - Choose All That Apply Each Factor Represents 1 point: Obesity (BMI >25) Each Risk Factor Represents 2 Points: Malignancy Each Risk Factor Represents 3 Points: Age 75 years or older, History of DVT/PE Thrombosis Risk Factor Assessment Total Risk Factor Score: 9 Thrombosis Risk Factor Assessment Level: High Risk Assessment and Plan Plan: -Abdominal pain: Significant constipation which resolved at this time did move his bowel rest -Retroperitoneal lymphadenopathy concerning for pancreatic cancer. Oncology evaluated the patient and discussed her options of irritability and lymph node biopsy. Patient is not interested in any chemotherapy considering his age, renal failure and heart failure. Palliative care will be consulted. -Congestive heart failure chronic systolic dysfunction with mild acute exacerbation after IV fluids. IV fluids will be held and patient will be resumed back on diuretics will hold off on and patient has systolic function of around 20-25%. Patient has an AICD in place -Acute renal failure secondary to Entresto which will be held -Chronic kidney disease stage IV -History of DVT in the past ration is presently not on any anticoagulation -Atrial fibrillation paroxysmal patient is presently rate controlled at this time COPD without any acute exacerbation -DVT prophylaxis subcutaneous heparin
[2020-05-26] MEDS: TORSEMIDE 20 MG TAB PO SCH (16:26)
[2020-05-26] MEDS ORDERED: FERROUS SULFATE 325 MG TAB PO SCH (20:00)
[2020-05-26] MEDS ORDERED: PRAVASTATIN SODIUM 20 MG TAB PO SCH (21:00)
[2020-05-26] MEDS ORDERED: METOPROLOL TARTRATE 25 MG TAB PO SCH (21:00)
[2020-05-26] MEDS ORDERED: LACTOBACILLUS ACIDOPH & BULGAR 1 EACH PACKET PO SCH (21:00)
[2020-05-26] MEDS ORDERED: allopurinoL 300 MG TAB PO SCH (21:00)
[2020-05-26] MEDS ORDERED: HYDROmorphone 0.5 MG/0.5 ML SYRINGE IVP STA (21:16)
[2020-05-26] MEDS: HEPARIN SODIUM,PORCINE 5,000 UNIT/ML 1 ML VIAL SQ SCH (21:35)
[2020-05-27 02:45] VITALS: PULSE 60
[2020-05-27] MEDS ORDERED: polyethylene glycoL 3350 17 GM POWD.PACK PO SCH (09:00)
[2020-05-27] MEDS ORDERED: TAMSULOSIN 0.4 MG CAP.ER.24H PO SCH (09:00)
--- NOTE | 2020-05-27 09:43 | P.CONS ---
History of Present Illness - Reason for Consult Consult date: 05/26/20 Pancreatic cancer Requesting physician: Filipe Pantoja - Chief Complaint Weight loss, fatigue, decreased appetite - History of Present Illness 80-year-old male with multiple medical comorbidities including GERD, hypertension, chronic kidney disease, hyperlipidemia, coronary artery disease with prior CABG and atrial fibrillation who presented as a transfer from outside hospital after being found to have imaging suggestive of a pancreatic malignancy. The patient had been reporting unintentional weight loss in progressive weakness for the past few months. He underwent imaging with findings of retroperitoneal lymphadenopathy and concerning for pancreatic cancer. The patient had been seen in clinic and instructed that he would require evaluation with endoscopic ultrasound for tissue biopsy but refused further evaluation. At this time the patient is standing that he is not interested in further workup and would like more conservative treatment. Previously he had undergone EGD and colonoscopy in 10/2019 with findings of polypectomy an unremarkable EGD. Review of Systems REVIEW OF SYSTEMS: CONSTITUTIONAL: Denies any fevers, chills, he does report unintentional weight loss, fatigue and decreased oral intake. CARDIOVASCULAR: Denies any chest pain, palpitations high or low blood pressures RESPIRATORY: Denies any shortness of breath, hemoptysis or cough. GENITOURINARY: No dysuria or hematuria. MUSCULOSKELETAL: No weakness reported. SKIN: Denies any new rashes or lesions, jaundice or pallor. PSYCHIATRIC: Denies any depression or anxiety. NEUROLOGY: Denies headache, denies any new focal deficits. EARS/NOSE/THROAT: No recent hearing change, congestion, nasal discharge or sore throat. EYES: No pain in eyes, discharge or change in vision. GASTROINTESTINAL: As per HPI. Past Medical History Past Medical History: Atrial Fibrillation, Cancer, Heart Failure, COPD, Deep Vein Thrombosis (DVT), Hypertension, Renal Disease Additional Past Medical History / Comment(s): pancreatic CA History of Any Multi-Drug Resistant Organisms: C-DIFF Year Discovered:: 2012 MDRO Source:: stool Past Surgical History: Coronary Bypass/CABG, Heart Catheterization With Stent, Orthopedic Surgery, Pacemaker Additional Past Surgical History / Comment(s): pacer Past Anesthesia/Blood Transfusion Reactions: No Reported Reaction Date of Last Stent Placement:: 2012 Type of Cardiac Device: AICD Device Placement Date:: 2015 Past Psychological History: No Psychological Hx Reported Smoking Status: Former smoker Past Alcohol Use History: Occasional Additional Past Alcohol Use History / Comment(s): pt states he smoked for about 50 years and he quit in 2012 Past Drug Use History: None Reported - Past Family History Daughter(s) Family Medical History: Cancer Additional Family Medical History / Comment(s): Colon cancer Medications and Allergies Home Medications Medication Instructions Recorded Confirmed Type Allopurinol [Zyloprim] 300 mg PO HS 03/22/20 05/25/20 History Ferrous Sulfate [Iron (65 MG 325 mg PO MOTUWETHFR@199903/22/20 05/25/20 History Elemental)] Lactobacillus Acidophilus 1 tab PO HS 03/22/20 05/25/20 History [Acidophilus] Metoprolol Tartrate 25 mg PO HS 03/22/20 05/25/20 History Pantoprazole Sodium 40 mg PO DAILY 03/22/20 05/25/20 History Pravastatin Sodium [Pravachol] 10 mg PO HS 03/22/20 05/25/20 History Sacubitril/Valsartan [Entresto 97 0.5 tab PO BID 03/22/20 05/25/20 History mg-103 mg Tablet] Spironolactone 12.5 mg PO DAILY 03/22/20 05/25/20 History Tamsulosin [Flomax] 0.4 mg PO DAILY 03/22/20 05/25/20 History Torsemide [Demadex] 20 mg PO DAILY 03/22/20 05/25/20 History Finasteride [Proscar] 5 mg PO DAILY 05/25/20 05/25/20 History Allergies Allergy/AdvReac Type Severity Reaction Status Date / Time metronidazole [From Flagyl] Allergy Unknown Verified 05/25/20 21:39 Physical Exam Vitals: Vital Signs Temp Pulse Pulse Resp BP BP Pulse Ox 05/26/20 08:00 97.4 F L 60 16 100/64 94 L 05/26/20 00:47 16 05/26/20 00:05 97.4 F L 56 L 20 104/60 94 L 05/25/20 18:28 77 16 119/85 95 Intake and Output 05/25/20 05/26/20 05/26/20 22:59 06:59 14:59 Output Total 550 Balance -550 Output: Urine 550 Other: Voiding Method Indwelling Catheter Indwelling Catheter Weight 110.223 kg 112.5 kg On physical examination, patient appears comfortable in no apparent distress. HEAD: Normocephalic, atraumatic. EYES: No scleral icterus. No conjunctival injection. MOUTH: No lesions, tongue midline. NECK: Trachea midline, no gross abnormalities. CHEST: Decreased air entry in all lung rapp. HEART: S1-S2 appreciated. ABDOMEN: Soft, nontender to palpation. Bowel sounds are positive. No organomegaly. No guarding or rigidity. EXTREMITIES: No pedal edema. SKIN: No rashes, no jaundice. NEUROLOGIC: Alert and oriented x3. No focal deficits. Results CBC & Chem 7: 05/26/20 09:28 05/26/20 07:10 Labs: Abnormal Lab Results - Last 24 Hours (Table) 05/26/20 05/26/20 05/26/20 Range/Units 07:10 07:10 09:28 RBC 3.24 L (4.30-5.90) m/uL Hgb 10.4 L (13.0-17.5) gm/dL Hct 31.7 L (39.0-53.0) % RDW 16.4 H (11.5-15.5) % Plt Count 99 L (150-450) k/uL Lymphocytes # 0.4 L (1.0-4.8) k/uL Sodium 136 L (137-145) mmol/L Carbon Dioxide 19.8 L 21 L (21.6-31.8) mmol/L BUN 38.0 H 37 H (9.0-27.0) mg/dL Creatinine 2.3 H 2.31 H (0.6-1.5) mg/dL Est GFR (CKD-EPI)AfAm 30.0 L (60.0-200.0) Est GFR (CKD-EPI)NonAf 25.9 L (60.0-200.0) Lipase 193 H (14-60) U/L Chest x-ray: report reviewed (Possible pulmonary venous hypertension on x-ray) Assessment and Plan (1) Pancreatic mass Narrative/Plan: 80-year-old male with multiple medical comorbidities presented as a transfer for pancreatic mass. Patient has been instructed that he would require further evaluation with biopsies at this time is not interested in further workup and would like conservative management and is interested in palliative care. Current Visit: Yes Status: Acute Priority: High Code(s): K86.89 - OTHER SPECIFIED DISEASES OF PANCREAS SNOMED Code(s): 717819649 (2) Adenopathy Current Visit: Yes Status: Acute Priority: High Code(s): R59.9 - ENLARGED LYMPH NODES, UNSPECIFIED SNOMED Code(s): 10083549 Plan: Supportive care Okay for diet Hematology/oncology service is following the patient Palliative service will be consult as see the patient No plan for further workup at this time as per the patient's wishes The GI service will stand by, please call us back with any questions or concerns Thank you for allowing us to participate in the care of the patient
[2020-05-27] MEDS: HEPARIN SODIUM,PORCINE 5,000 UNIT/ML 1 ML VIAL SQ SCH (09:57)
[2020-05-27] MEDS: FINASTERIDE 5 MG TAB PO SCH (09:58)
[2020-05-27] MEDS: PANTOPRAZOLE 40 MG/10 ML VIAL IV SCH (09:58)
[2020-05-27] MEDS: TORSEMIDE 20 MG TAB PO SCH (09:58)
[2020-05-27 11:23] LABS: African American GFR (CKD) 31.6 (60.0-200.0); Anion Gap 9.6 mmol/L (4.00-12.00); Calcium 9.3 mg/dL (8.7-10.3); Carbon Dioxide 20.4 mmol/L (21.6-31.8); Non-African American GFR(CKD) 27.3 (60.0-200.0); Potassium 3.9 mmol/L (3.5-5.5)
[2020-05-27] MEDS ORDERED: HYDROcodone/APAP 10-325MG 1 EACH TAB PO PRN (13:06)
[2020-05-27] MEDS ORDERED: HYDROmorphone 0.5 MG/0.5 ML SYRINGE IVP STA (14:10)
[2020-05-27] MEDS ORDERED: HYDROmorphone 0.5 MG/0.5 ML SYRINGE IVP PRN (14:14)
--- NOTE | 2020-05-27 14:30 | P.PN ---
Subjective Patient is 80-year-old pleasant male was sent in from his [facility] with concerns of pancreatic cancer patient has a retroperitoneal l ymphadenopathy concerning for pancreatic cancer patient is sent in here for further evaluation for the and gastro-oncology was consulted. He is also found to have a poor renal function patient creatinine is 2.31 although his baseline appears to be around 1.5. Patient was given IV fluids were discontinued patient has history of congestive heart failure with EF of around the 20%. Patient is also on entresto which is being held patient is on Demadex which will be resumed nephrology will be consulted. Patient wasn't creatinine is around 2.31. Patient was complaining of abdominal pain and constipation yesterday which resolved at this time patient's abdominal pain is present predominantly in the mid and lower abdomen bilaterally and crampy moderate abdominal pain which actually resolved at this time. Oncology was consulted as well. Chest x-ray is said concerning for pulmonary edema and I ordered a BNP which came back at 6600 although clinically patient doesn't have any pedal edema and JVD at this time. 05/27/2020 Patient says he still has abdominal pain and requesting more pain medications although we'll a very limited in the opiate pain medications that can be provided because of chronic kidney disease. Patient was evaluated by multiple consultants patient's creatinine minimally improved to 2.2 baseline is around 1.8. 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 Discussed with nephrology. Patient will be discharged today on every other day of Demadex for about a week followed by resuming Demadex daily and patient will continue Aldactone and entresto is being discontinued because of acute renal failure. Patient was evaluated by gastroenterology and oncology. Because of his retroperitoneal adenopathy. Patient will need biopsy but he is not interested in further pursuing these lymph nodes, considering his age, congestive heart nolberto lure with EF of around 20% and chronic kidney disease stage IV. Patient will be discharged on palliative care and/hospice. Constitutional: Denied any fatigue denied any fever. Cardio vascular: denied any chest pain, palpitations Gastrointestinal as mentioned in HPI Pulmonary: Denied any shortness of breath cough Neurologic denied any new focal deficits All inpatient medications were reviewed and appropriate changes in these medications as dictated in the interval history and assessment and plan. Objective - Vital Signs Vital signs: Vital Signs Temp 97.3 F L 05/27/20 07:49 Pulse 60 05/27/20 07:49 Resp 16 05/27/20 07:49 BP 109/68 05/27/20 07:49 Pulse Ox 96 05/27/20 07:49 Intake & Output 05/26/20 05/27/20 05/27/20 18:59 06:59 18:59 Output Total 400 Balance -400 Weight 114 kg Output: Urine 400 Other: Voiding Method Indwelling Catheter Indwelling Catheter Indwelling Catheter # Bowel Movements 1 - Exam PHYSICAL EXAMINATION: GENERAL: The patient is alert and oriented x3, not in any acute distress. Obese HEENT: Pupils are round and equally reacting to light. EOMI. No scleral icterus. No conjunctival pallor. Normocephalic, atraumatic. No pharyngeal erythema. No thyromegaly. CARDIOVASCULAR: S1 and S2 present. No murmurs, rubs, or gallops. PULMONARY: Chest is clear to auscultation, no wheezing or crackles. ABDOMEN: Soft, nontender, nondistended, normoactive bowel sounds. No palpable organomegaly. MUSCULOSKELETAL: No joint swelling or deformity. EXTREMITIES: No cyanosis, clubbing, or pedal edema. NEUROLOGICAL: Gross neurological examination did not reveal any focal deficits. SKIN: No rashes. - Labs CBC & Chem 7: 05/26/20 09:28 05/27/20 07:02 Labs: Abnormal Lab Results - Last 24 Hours (Table) 05/27/20 Range/Units 07:02 Carbon Dioxide 20.4 L (21.6-31.8) mmol/L BUN 33.0 H (9.0-27.0) mg/dL Creatinine 2.2 H (0.6-1.5) mg/dL Est GFR (CKD-EPI)AfAm 31.6 L (60.0-200.0) Est GFR (CKD-EPI)NonAf 27.3 L (60.0-200.0) Assessment and Plan Plan: -Abdominal pain: Believed to be secondary to constipation which resolved although patient is still having some abdominal pain probably secondary to possible pancreatic cancer. -Retroperitoneal lymphadenopathy concerning for pancreatic cancer. Oncology evaluated the patient and discussed her options of irritability and lymph node biopsy. Patient is not interested in any chemotherapy considering his age, adina l failure and heart failure. Patient will be discharged today as mentioned above -Congestive heart failure chronic systolic dysfunction she was not in acute exacerbation. Patient has EF of around 35%. Patient will be discharged on above-mentioned her diuretic regimen. -Acute renal failure secondary to Entresto which will be held -Chronic kidney disease stage IV -History of DVT in the past ration is presently not on any anticoagulation -Atrial fibrillation paroxysmal patient is presently rate controlled at this time COPD without any acute exacerbation
[2020-05-27 14:51] VITALS: BP 98/58; RESP 17; TEMP 97.9
--- NOTE | 2020-05-27 15:35 | CONS ---
CONSULTATION REASON FOR CONSULTATION: The patient is seen for evaluation of renal failure. HISTORY OF PRESENT ILLNESS: The patient is an 80-year-old male who is admitted to the hospital with complaints of abdominal pain, decreased oral intake and increased weakness. He has history of hypertension, CKD, NKF stage 3B to 4, with baseline creatinine about 1.5-1.8 mg/dL as of March of 2020, but previous creatinine as high as 2.1 and 2.5 and acute kidney injury earlier with creatinine of 4.7 in March of 2020. The patient has underlying history of abnormality in the pancreatic area suggestive of malignancy along with history of weight loss with evidence of retroperitoneal lymphadenopathy and concern for pancreatic cancer. He also has underlying cardiomyopathy. Serum creatinine was 2.3 mg/dL on admission. It is now at 2.2. The patient has an indwelling Argueta catheter and he has had good urine output. An ultrasound done during his last admission in March shows no evidence of hydronephrosis. The patient has had urine retention for which he has a Argueta catheter and has seen Urology in the past. Blood pressure has been on the lower side with systolic around 102-104 mmHg. Patient is not on any nonsteroidal anti-inflammatory agents prior to admission. He is maintained on maintained on diuretics for underlying history of CHF. PAST MEDICAL HISTORY: Atrial fibrillation, COPD, CHF, DVT, hypertension, presumed pancreatic cancer, CKD stage 3B to 4, history of urine retention. PAST SURGICAL HISTORY: Coronary artery bypass surgery, cardiac catheterization, coronary stent placement, pacemaker placement. SOCIAL HISTORY: The patient is a former smoker. No history of drug abuse or alcohol abuse. MEDICATIONS: Medications currently include Zyloprim, metoprolol, pantoprazole, Pravachol, Entresto, Flomax, spironolactone, Demadex, Proscar. ALLERGIES: Allergies include FLAGYL. REVIEW OF SYSTEMS: As per HPI. Other systems negative. PHYSICAL EXAMINATION: Patient is comfortable, awake, not in any acute distress. Alert and oriented x3. Blood pressure was 109/68, heart rate 60 per minute. Patient is afebrile. EXAMINATION OF THE HEART: S1, S2. EXAMINATION OF THE LUNGS: Bilateral breath sounds are heard. Abdomen is soft, nontender. There is tenderness noted in the abdomen. Examination of lower extremities shows no significant edema. 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 LABS: Labs show hemoglobin 10.4 from yesterday, sodium 135 today, potassium 3.9, serum creatinine 2.2, BUN 33. ASSESSMENT: 1. Acute kidney injury, most likely associated with some degree of hypoperfusion as systolic blood pressure remains low. I will decrease the Demadex to every other day if patient is discharged. Continue with the Argueta catheter for now. Patient is considering palliative care/hospice care. 2. Pancreatic malignancy presumed based on imaging studies and significant weight loss. 3. Cardiomyopathy and history of congestive heart failure. PLAN: Decrease Demadex to every other day for one week post discharge and then increase to daily thereafter. Try to increase oral intake as tolerated. MMODL / IJN: [id number] /
--- NOTE | 2020-06-01 12:47 | P.DS ---
Providers Date of admission: 05/25/20 19:07 Expected date of discharge: 05/27/20 Attending physician: Rob Mclaughlin Consults: 05/25/20 19:05 Consult Physician Urgent Consulting Provider: Lauren Kinsey Consult Reason/Comments: Evaluate for pancreatic cancer Do you want consulting provider notified?: Yes 05/25/20 19:07 Consult Physician Urgent Consulting Provider: Nikki Lovelace Consult Reason/Comments: Evaluate for pancreatic cancer Do you want consulting provider notified?: Yes 05/26/20 10:51 Consult Physician Routine Consulting Provider: Summer Sandoval Consult Reason/Comments: elevated BUN & Creat Do you want consulting provider notified?: Yes Primary care physician: [facility] Course: Patient is 80-year-old pleasant male was sent in from his [facility] with concerns of pancreatic cancer patient has a retroperitoneal lymphadenopathy concerning for pancreatic cancer patient is sent in here for further evaluation for the and gastro-oncology was consulted. He is also found to have a poor renal function patient creatinine is 2.31 although his baseline appears to be around 1.5. Patient was given IV fluids were discontinued patient has history of congestive heart failure with EF of around the 20%. Patient is also on entresto which is being held patient is on Demadex which will be resumed nephrology will be consulted. Patient wasn't creatinine is around 2.31. Patient was complaining of abdominal pain and constipation yesterday which resolved at this time patient's abdominal pain is present predominantly in the mid and lower abdomen bilaterally and crampy moderate abdominal pain which actually resolved at this time. Oncology was consulted as well. Chest x-ray is said concerning for pulmonary edema and I ordered a BNP which came back at 6600 although clinically patient doesn't have any pedal edema and JVD at this time. 05/27/2020 Patient says he still has abdominal pain and requesting more pain medications although we'll a very limited in the opiate pain medications that can be provided because of chronic kidney disease. Patient was evaluated by multiple consultants patient's creatinine minimally improved to 2.2 baseline is around 1.8. 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 Discussed with nephrology. Patient will be discharged today on every other day of Demadex for about a week followed by resuming Demadex daily and patient will continue Aldactone and entresto is being discontinued because of acute renal failure. Patient was evaluated by gastroenterology and oncology. Because of his retroperitoneal adenopathy. Patient will need biopsy but he is not interested in further pursuing these lymph nodes, considering his age, congestive heart failure with EF of around 20% and chronic kidney disease stage IV. Patient will be discharged on palliative care and/hospice. PHYSICAL EXAMINATION: GENERAL: The patient is alert and oriented x3, not in any acute distress. Obese HEENT: Pupils are round and equally reacting to light. EOMI. No scleral icterus. No conjunctival pallor. Normocephalic, atraumatic. No pharyngeal erythema. No thyromegaly. CARDIOVASCULAR: S1 and S2 present. No murmurs, rubs, or gallops. PULMONARY: Chest is clear to auscultation, no wheezing or crackles. ABDOMEN: Soft, nontender, nondistended, normoactive bowel sounds. No palpable organomegaly. MUSCULOSKELETAL: No joint swelling or deformity. EXTREMITIES: No cyanosis, clubbing, or pedal edema. NEUROLOGICAL: Gross neurological examination did not reveal any focal deficits. SKIN: No rashes. Assessment and Plan Plan: -Abdominal pain: Believed to be secondary to constipation which resolved although patient is still having some abdominal pain probably secondary to possible pancreatic cancer. -Retroperitoneal lymphadenopathy concerning for pancreatic cancer. Oncology evaluated the patient and discussed her options of irritability and lymph node biopsy. Patient is not interested in any chemotherapy considering his age, renal failure and heart failure. Patient will be discharged today as mentioned above -Congestive heart failure chronic systolic dysfunction she was not in acute exacerbation. Patient has EF of around 35%. Patient will be discharged on above-mentioned her diuretic regimen. -Acute renal failure secondary to Entresto which will be held -Chronic kidney disease stage IV -History of DVT in the past ration is presently not on any anticoagulation -Atrial fibrillation paroxysmal patient is presently rate controlled at this time COPD without any acute exacerbation Plan - Discharge Summary Discharge Rx Participant: No New Discharge Prescriptions: New HYDROcodone/APAP 10-325MG [[place] 10-325] 1 each PO Q4H PRN #18 tab PRN Reason: Pain polyethylene glycoL 3350 [Miralax] 17 gm PO DAILY PRN #15 packet PRN Reason: Constipation Sennosides/Docusate Sodium [Senna Plus 8.6-50 mg Tablet] 1 each PO BID PRN #30 tablet PRN Reason: Constipation Continue Allopurinol [Zyloprim] 300 mg PO HS Pravastatin Sodium [Pravachol] 10 mg PO HS Metoprolol Tartrate 25 mg PO HS Ferrous Sulfate [Iron (65 MG Elemental)] 325 mg PO [id number] Spironolactone 12.5 mg PO DAILY Pantoprazole Sodium 40 mg PO DAILY Tamsulosin [Flomax] 0.4 mg PO DAILY Lactobacillus Acidophilus [Acidophilus] 1 tab PO HS Finasteride [Proscar] 5 mg PO DAILY Torsemide [Demadex] 20 mg PO DAILY #0 Discontinued Sacubitril/Valsartan [Entresto 97 mg-103 mg Tablet] 0.5 tab PO BID Discharge Medication List Allopurinol [Zyloprim] 300 mg PO HS 03/22/20 [History] Ferrous Sulfate [Iron (65 MG Elemental)] 325 mg PO [id number]/20 [History] Lactobacillus Acidophilus [Acidophilus] 1 tab PO HS 03/22/20 [History] Metoprolol Tartrate 25 mg PO HS 03/22/20 [History] Pantoprazole Sodium 40 mg PO DAILY 03/22/20 [History] Pravastatin Sodium [Pravachol] 10 mg PO HS 03/22/20 [History] Spironolactone 12.5 mg PO DAILY 03/22/20 [History] Tamsulosin [Flomax] 0.4 mg PO DAILY 03/22/20 [History] Finasteride [Proscar] 5 mg PO DAILY 05/25/20 [History] HYDROcodone/APAP 10-325MG [[place] 10-325] 1 each PO Q4H PRN #18 tab 05/27/20 [Rx] Sennosides/Docusate Sodium [Senna Plus 8.6-50 mg Tablet] 1 each PO BID PRN #30 tablet 05/27/20 [Rx] Torsemide [Demadex] 20 mg PO DAILY #0 05/27/20 [Rx] polyethylene glycoL 3350 [Miralax] 17 gm PO DAILY PRN #15 packet 05/27/20 [Rx] Follow up Appointment(s)/Referral(s): Mello Vargas MD [Primary Care Provider] - 06/02/20 2:00 pm [facility] Visiting Nurse, [NON-STAFF] - Patient Instructions/Handouts: Chronic Kidney Disease (DC), Pancreatic Cancer (DC) Discharge Disposition: HOME WITH HOME HEALTH SERVICES
== END 2020-05-27 18:01 | disposition home health service (06) | DRG 436 ==
LOC: EC 18:26 → 5NMEDONC 19:07 → 4SSUR 21:55
PROVIDERS: ADMIT Internal Medicine; ATTEND Internal Medicine
DX: C25.9 Malignant neoplasm of pancreas, unspecified (principal); I13.0 Hypertensive heart and chronic kidney disease with heart failure and stage 1 through stage 4 chronic kidney disease, or unspecified chronic kidney disease; N17.9 Acute kidney failure, unspecified; N18.4 Chronic kidney disease, stage 4 (severe); I50.22 Chronic systolic (congestive) heart failure; I48.0 Paroxysmal atrial fibrillation; J44.9 Chronic obstructive pulmonary disease, unspecified; I25.10 Atherosclerotic heart disease of native coronary artery without angina pectoris; K21.9 Gastro-esophageal reflux disease without esophagitis; D63.1 Anemia in chronic kidney disease; E78.5 Hyperlipidemia, unspecified; K59.00 Constipation, unspecified; T44.5X5A Adverse effect of predominantly beta-adrenoreceptor agonists, initial encounter; Z86.718 Personal history of other venous thrombosis and embolism; Z86.19 Personal history of other infectious and parasitic diseases; Z95.1 Presence of aortocoronary bypass graft; Z95.5 Presence of coronary angioplasty implant and graft; Z87.891 Personal history of nicotine dependence; Z79.899 Other long term (current) drug therapy; Z88.8 Allergy status to other drugs, medicaments and biological substances; Z95.0 Presence of cardiac pacemaker
CPT/HCPCS: 71046; 80048; 80053; 82150; 83690; 83880; 85025; 99285